=== PATIENT | female | born 1955 | race American Indian/Alaskan Native ===

== ENCOUNTER 2016-12-06 18:55 | Inpatient (IN) | payer MEDICARE, MEDICAID ==
--- NOTE | 2016-12-06 19:48 | C.PDOC ---
History Of Present Illness 61 year old female presents to the ED with c/o new onset chest pain that began yesterday and new onset lower left extremity pain with unknown date of occurrence due to poor historian. Pt reports that she cannot move right leg due to pain. Pt notes dyspnea but denies nausea, vomiting, fever, chills, diarrhea, dizziness, headache, vaginal discharge, dysuria, or any other complaints. PMHx including Hepatitis, HIV, HTN, Hyperlipidemia, DM, CVA with residual right extremity hemiplega, Arthritis, Osteoporosis and COPD Time Seen by Provider: 12/06/16 19:30 Chief Complaint (Nursing): Chest Pain History Per: Patient History/Exam Limitations: other (Limitation due to poor historian) Onset/Duration Of Symptoms: Days Current Symptoms Are (Timing): Still Present Severity: Mild Associated Symptoms: Dyspnea. denies: Nausea Past Medical History Reviewed: Historical Data, Nursing Documentation, Vital Signs Vital Signs: Last Vital Signs Temp 98.9 F 12/06/16 19:11 Pulse 72 12/06/16 20:37 Resp 20 12/06/16 20:37 BP 181/100 H 12/06/16 20:37 Pulse Ox 100 12/06/16 20:58 - Medical History PMH: Arthritis, Bronchitis, COPD, CVA (Multiple; with residual right sided weakness), Diabetes, Hepatitis (C), HIV, HTN, Hypercholesterolemia, Hyperlipidemia, Osteoporosis, Rheumatoid Arthritis, Chronic Pain Denies: Chronic Kidney Disease Surgical History: Appendectomy, Cholecystectomy - [facility] Procedures OCCUPATIONAL THERAPY (11/01/13) PHYSICAL THERAPY NEC (11/01/13) RECREATIONAL THERAPY (11/01/13) Family History: States: Unknown Family Hx - Social History Hx Tobacco Use: No Hx Alcohol Use: No Hx Substance Use: No - Immunization History Hx Tetanus Toxoid Vaccination: No Hx Influenza Vaccination: Yes Hx Pneumococcal Vaccination: No Review Of Systems Review Of Systems: ROS cannot be obtained secondary to pt's inabilty to answer questions. Constitutional: Negative for: Fever, Chills Cardiovascular: Positive for: Chest Pain Gastrointestinal: Negative for: Nausea, Vomiting, Diarrhea Genitourinary: Negative for: Dysuria, Vaginal Discharge Musculoskeletal: Positive for: Leg Pain (Right) Neurological: Negative for: Headache, Dizziness Physical Exam - Physical Exam Appears: Non-toxic, No Acute Distress Skin: Warm, Dry Head: Atraumatic, Normacephalic Eye(s): bilateral: Normal Inspection Chest: Symmetrical Cardiovascular: Rhythm Regular Respiratory: Normal Breath Sounds, No Rales, No Rhonchi, No Wheezing Gastrointestinal/Abdominal: Soft, No Tenderness, No Guarding, No Rebound Extremity: Tenderness (RLE tenderness) Neurological/Psych: Oriented x3, Normal Speech, No Normal Motor (2/5 motor strength RLE; chronic contraction RLE. Full strength LLE), Other (No focal deficit) ED Course And Treatment - Laboratory Results Result Diagrams: 12/06/16 20:01 12/06/16 20:24 ECG: Interpreted By Me, Viewed By Me (60) ECG Interpretation: Normal O2 Sat by Pulse Oximetry: 100 (Room air) Pulse Ox Interpretation: Normal Progress - Re-Evaluation Re-evaluation Note: 12/06/16 20:59 NO PRIOR CARDIAC TESTING PER OLD RECORDS.. UNABLE TO DO DVT STUDY DUE TO LACK OF AVAIL SERVICE. WILL LOVENOX POSSIBLE DVT TX D/W DR Matthew ZULETA C/F PMD WILL ADMIT PS STILL W PERSIST LEG PAIN. VS UNCHANGED - Data Reviewed Data Reviewed: Lab, Diagnostic imaging, EKG, Old records - Continuity of Care Discussed patient case with:: Patient, Family-HIPPA compliant, Covering for PMD Medical Decision Making Medical Decision Making: Plans: -CXR -Labs -Blood works -Toradol -IV Fluids -Vasotec -Morphine -EKG -Reassess and disposition Disposition Counseled Patient/Family Regarding: Studies Performed, Diagnosis - Disposition Disposition: HOSPITALIZED Disposition Time: 21:01 Condition: STABLE - POA Present On Arrival: None - Clinical Impression Clinical Impression: Chest pain, Leg pain - Scribe Statement The provider has reviewed the documentation as recorded by the Scribe Tu gant All medical record entries made by the Scribe were at my direction and personally dictated by me. I have reviewed the chart and agree that the record accurately reflects my personal performance of the history, physical exam, medical decision making, and the department course for this patient. I have also personally directed, reviewed, and agree with the discharge instructions and disposition. Decision To Admit - Pt Status Changed To: Hospital Disposition Of: Observation - . Bed Request Type: Telemetry Admitting Physician: Jessica Zuleta Patient Diagnosis: Chest pain, Leg pain
[2016-12-06] MEDS ORDERED: Enalaprilat 2.5 MG/2 ML IV ONE (19:54)
[2016-12-06 20:08] LABS: BASO # 0.1 K/uL (0.0-0.2); BASO % 0.7 % (0.0-2.0); EOS # 0.2 K/uL (0.0-0.7); EOS % 2.4 % (0.0-4.0); HEMATOCRIT 36.5 % (34.0-47.0); LYMPH # 3.9 K/uL (1.0-4.3); LYMPH % 47.4 % (20.0-40.0); MEAN CELL VOLUME 84.2 fL (81.0-99.0); MEAN CORPUSCULAR HEMOGLOBIN 28.7 pg (27.0-31.0); MEAN CORPUSCULAR HGB CONC 34.1 g/dL (33.0-37.0); MEAN PLATELET VOLUME 9.5 fL (7.2-11.7); MONO # 0.5 K/uL (0.0-0.8); MONO % 5.7 % (0.0-10.0); RED CELL DISTRIBUTION WIDTH 14.6 % (11.5-14.5); WHITE BLOOD COUNT 8.3 K/uL (4.8-10.8)
[2016-12-06 20:29] LABS: INR 1.1; PARTIAL THROMBOPLASTIN TIME 33 SECONDS (21-34)
[2016-12-06] MEDS ORDERED: Enalaprilat 2.5 MG/2 ML ONE (20:31)
[2016-12-06 20:37] LABS: CHLORIDE 98 mmol/L (98-107); POTASSIUM 3.9 mmol/L (3.6-5.2); SODIUM 139 mmol/L (132-148)
[2016-12-06 20:39] LABS: AST/SGOT 94 U/L (14-36); BILIRUBIN,TOTAL 1.7 mg/dL (0.2-1.3); CARBON DIOXIDE 27 mmol/L (22-30); GFR AFRICAN-AMERICAN > 60
[2016-12-06 20:40] LABS: ALB/GLOB RATIO 0.7 (1.0-2.1); ALKALINE PHOSPHATASE 114 U/L (38-126); ALT/SGPT 68 U/L (9-52); BLOOD UREA NITROGEN 18 mg/dL (7-17); CALCIUM 8.6 mg/dl (8.6-10.4); GLUCOSE,RANDOM 75 mg/dL (65-105); TOTAL PROTEIN 9.2 g/dL (6.3-8.3)
[2016-12-06 20:59] LABS: RBC URINE < 1 /hpf (0-3); URINE BACTERIA FEW (<OCC); URINE BILIRUBIN NEGATIVE (NEGATIVE); URINE BLOOD NEGATIVE (NEGATIVE); URINE COLOR Yellow (YELLOW); URINE GLUCOSE (UA) NORMAL (Normal); URINE KETONE NEGATIVE (NEGATIVE); URINE LEUKOCYTE ESTERASE TRACE Leu/uL (Negative); URINE PROTEIN NEGATIVE (NEGATIVE); WBC URINE 7 /hpf (0-5)
[2016-12-06] MEDS ORDERED: Enoxaparin 40 mg Syringe SC STA (21:03)
[2016-12-06] MEDS ORDERED: Morphine 4 MG/ML VIAL ONE (21:11)
[2016-12-06] MEDS ORDERED: Enoxaparin 80 mg Syringe ONE (21:11)
[2016-12-06] MEDS ORDERED: Gentamicin IV 60mg/50ml NS(PREMIX) IVPB SCH (22:00)
[2016-12-07] MEDS: Aspirin 325 mg EC Tablets PO SCH (09:29)
[2016-12-07] MEDS: Emtricitabine-Tenofovir 200 mg-300 mg Tab PO SCH (09:29)
[2016-12-07] MEDS: Pantoprazole 40 mg EC Tab PO SCH (09:29)
[2016-12-07] MEDS: ATAZANAVIR PO SCH ×2 (09:30→18:00)
[2016-12-07] MEDS ORDERED: cefTRIAXone IV 1 gm in Dextros 50 ML IVPB SCH (10:00)
[2016-12-07] MEDS ORDERED: cefTRIAXone IV 1 gm in Dextros 50 ML BAG IVPB SCH (10:00)
[2016-12-07] MEDS ORDERED: Enoxaparin 30 mg Syringe SC SCH (10:00)
[2016-12-07] MEDS ORDERED: Pneumococcal 23-Valent Vaccine IM ONE (10:00)
--- NOTE | 2016-12-07 10:37 | RAD ---
PROCEDURE: CHEST RADIOGRAPH, 1 VIEW HISTORY: chest pain COMPARISON: None available. FINDINGS: LUNGS: Clear. PLEURA: No pneumothorax or pleural fluid seen. CARDIOVASCULAR: Normal. OSSEOUS STRUCTURES: No significant abnormalities. VISUALIZED UPPER ABDOMEN: Normal. OTHER FINDINGS: None. IMPRESSION: No active disease.
[2016-12-07] MEDS: Meropenem 1 GM in Sodium Chloride 0.9% 100 ML IVPB SCH (13:30)
[2016-12-07] MEDS ORDERED: NS IVPB SCH (14:00)
[2016-12-07] MEDS ORDERED: GENTAMICIN IVPB SCH (14:00)
--- NOTE | 2016-12-07 14:11 | CP.PCM.PN ---
<EdwinNoé H - Last Filed: 12/07/16 16:19> Subjective - Date & Time of Evaluation Date of Evaluation: 12/07/16 Time of Evaluation: 09:15 - Subjective Subjective: Dr. Larose service: Patient seen and evaluated in room. History is limited due to patient's condition. She says she came here in ambulance because her chest was hurting. Objective - Vital Signs/Intake and Output Vital Signs (last 24 hours): Temp Pulse Resp BP Pulse Ox 97.4 F L 61 20 116/72 95 12/07/16 08:29 12/07/16 08:29 12/07/16 08:29 12/07/16 08:29 12/07/16 08:29 - Medications Medications: Current Medications Acyclovir (Zovirax) 400 mg PO BID [facility] Last Admin: 12/07/16 09:30 Dose: 400 mg Aspirin (Ecotrin) 325 mg PO DAILY [facility] Last Admin: 12/07/16 09:29 Dose: 325 mg Atazanavir (Reyataz) 200 mg PO BID [facility] Last Admin: 12/07/16 09:30 Dose: 200 mg Emtricitabine/Tenofovir (Truvada 200 Mg-300 Mg) 1 tab PO DAILY [facility] Last Admin: 12/07/16 09:29 Dose: 1 tab Enoxaparin Sodium (Lovenox) 40 mg SC DAILY [facility] Last Admin: 12/07/16 09:32 Dose: 40 mg Meropenem 1 gm/ Sodium (Chloride) 100 mls @ 100 mls/hr IVPB Q12H [facility] Gentamicin Sulfate 100 mg/ (Sodium Chloride) 102.5 mls @ 100 mls/hr IVPB STAT STA Stop: 12/07/16 14:23 Last Admin: 12/07/16 13:45 Dose: 100 mls/hr Gentamicin Sulfate/Sodium Chloride (Gentamicin 60mg/50ml Ns) 50 mls @ 50 mls/ hr IVPB Q8 [facility] Lisinopril (Zestril) 20 mg PO DAILY [facility] Last Admin: 12/07/16 09:29 Dose: 20 mg Pantoprazole Sodium (Protonix Ec Tab) 40 mg PO DAILY [facility] Last Admin: 12/07/16 09:29 Dose: 40 mg - Labs Labs: PT 12.7 SECONDS (9.7-12.2) H 12/06/16 20:01 INR 1.1 12/06/16 20:01 APTT 33 SECONDS (21-34) 12/06/16 20:01 - Constitutional Appears: Confused, Chronically Ill - Head Exam Head Exam: NORMOCEPHALIC - Eye Exam Eye Exam: Normal appearance - Respiratory Exam Respiratory Exam: Clear to Ausculation Bilateral. absent: Rales, Rhonchi, Wheezes - Cardiovascular Exam Cardiovascular Exam: REGULAR RHYTHM, RRR, +S1, +S2. absent: Gallop, Rubs - GI/Abdominal Exam GI & Abdominal Exam: Soft - Extremities Exam Extremities Exam: Normal Inspection. absent: Pedal Edema Assessment and Plan (1) Chest pain Assessment & Plan: Patient admitted for chest pain, cardiac enzymes have been negative, Dr. Callahan consulted for cardiology. Status: Acute (2) AIDS (acquired immune deficiency syndrome) Assessment & Plan: continue her home antiviral medication, Dr. Mondragon consulted. Status: Acute (3) Complicated UTI (urinary tract infection) Assessment & Plan: Patient has a history of reccurent UTI that were ESBL gram negative. Have consulted Dr. Mondragon and Dr. uMniz respectively. Status: Acute (4) Hepatitis C Assessment & Plan: Patient has elevated LFTs, on chart review she tested positive for Hep C about 2 years ago[address] Have consulted Dr. Cruz GI outside sales consultant. Status: Chronic (5) Right-sided muscle weakness Assessment & Plan: Residual from old CVA. physical therapy and and occupational therapy ordered. Status: Acute (6) Prophylactic measure Assessment & Plan: Protonix and Lovenox ordered for prophylaxis. Status: Acute <Jessica Larose S - Last Filed: 12/07/16 17:59> Objective - Vital Signs/Intake and Output Vital Signs (last 24 hours): Temp Pulse Resp BP Pulse Ox 97.6 F 64 20 168/91 H 97 12/07/16 16:08 12/07/16 16:08 12/07/16 16:08 12/07/16 16:08 12/07/16 16:08 - Medications Medications: Current Medications Acyclovir (Zovirax) 400 mg PO BID [facility] Last Admin: 12/07/16 09:30 Dose: 400 mg Aspirin (Ecotrin) 325 mg PO DAILY [facility] Last Admin: 12/07/16 09:29 Dose: 325 mg Atazanavir (Reyataz) 200 mg PO BID [facility] Last Admin: 12/07/16 09:30 Dose: 200 mg Emtricitabine/Tenofovir (Truvada 200 Mg-300 Mg) 1 tab PO DAILY [facility] Last Admin: 12/07/16 09:29 Dose: 1 tab Enoxaparin Sodium (Lovenox) 40 mg SC DAILY [facility] Last Admin: 12/07/16 09:32 Dose: 40 mg Meropenem 1 gm/ Sodium (Chloride) 100 mls @ 100 mls/hr IVPB Q12H [facility] Last Admin: 12/07/16 13:30 Dose: 100 mls/hr Gentamicin Sulfate/Sodium Chloride (Gentamicin 60mg/50ml Ns) 50 mls @ 50 mls/ hr IVPB Q8 [facility] Lisinopril (Zestril) 20 mg PO DAILY [facility] Last Admin: 12/07/16 09:29 Dose: 20 mg Pantoprazole Sodium (Protonix Ec Tab) 40 mg PO DAILY [facility] Last Admin: 12/07/16 09:29 Dose: 40 mg - Labs Labs: PT 12.7 SECONDS (9.7-12.2) H 12/06/16 20:01 INR 1.1 12/06/16 20:01 APTT 33 SECONDS (21-34) 12/06/16 20:01 Attending/Attestation - Attestation I have personally seen and examined this patient.: Yes I have fully participated in the care of the patient.: Yes I have reviewed all pertinent clinical information, including history, physical exam and plan: Yes Notes (Text): 12/07/16 17:59 case seen and discussed [facility] staff and resident mx as agreed
--- NOTE | 2016-12-07 17:59 | CP.PCM.HP ---
History of Present Illness - History of Present Illness History of Present Illness: 61-year-old female patient with past medical history of CVA with residual right hemiplegia, COPD bronchitis diabetes hypertension hyperlipidemia HIV hepatitis C rheumatoid arthritis osteoporosis presented to the emergency department with complaint of chest pain, mild shortness of breath, right lower limb pain. Patient is alert oriented No fever nausea vomiting diarrhea Emergency department primary blood workup done chest x-ray done Started on IV fluids and pain meds. Present on Admission - Present on Admission Any Indicators Present on Admission: No Past Patient History - Infectious Disease Hx of Infectious Diseases: None - Tetanus Immunizations Tetanus Immunization: Unknown - Past Medical History & Family History Past Medical History?: Yes - Past Social History Smoking Status: Former Smoker - CARDIAC Hx Cardiac Disorders: Yes Hx Hypercholesterolemia: Yes Hx Hypertension: Yes - PULMONARY Hx Chronic Obstructive Pulmonary Disease (COPD): Yes - NEUROLOGICAL HX Cerebrovascular Accident: Yes (right hemiparesis) - HEENT Hx HEENT Problems: No - RENAL Hx Chronic Kidney Disease: No - ENDOCRINE/METABOLIC Hx Diabetes Mellitus Type 2: Yes - HEMATOLOGICAL/ONCOLOGICAL Hx Human Immunodeficiency Virus (HIV): Yes - INTEGUMENTARY Hx Dermatological Problems: No - MUSCULOSKELETAL/RHEUMATOLOGICAL Hx Falls: Yes - GASTROINTESTINAL Hx Gastrointestinal Disorders: No - GENITOURINARY/GYNECOLOGICAL Hx Genitourinary Disorders: No - PSYCHIATRIC Hx Psychophysiologic Disorder: No Hx Substance Use: No - SURGICAL HISTORY Hx Surgeries: Yes Hx Appendectomy: Yes Hx Cholecystectomy: Yes - ANESTHESIA Hx Anesthesia: Yes Hx Anesthesia Reactions: No Hx Malignant Hyperthermia: No Meds Allergies/Adverse Reactions: Allergies Allergy/AdvReac Type Severity Reaction Status Date / Time No Known Allergies Allergy Verified 01/31/17 23:15 Results - Vital Signs Recent Vital Signs: Last Vital Signs Temp 97.6 F 12/07/16 16:08 Pulse 64 12/07/16 16:08 Resp 20 12/07/16 16:08 BP 168/91 H 12/07/16 16:08 Pulse Ox 97 12/07/16 16:08 - Labs Result Diagrams: 12/12/16 06:56 12/12/16 06:56 Labs: Laboratory Results - last 24 hr 12/07/16 12/07/16 07:09 14:26 Total Creatine Kinase 33 39 CK-MB (Mass) 0.59 0.62 Troponin I, Quant < 0.0120 < 0.0120 Assessment & Plan (1) AIDS (acquired immune deficiency syndrome) Status: Acute (2) Abdominal discomfort Status: Acute (3) Abdominal pain Status: Acute Priority: Medium (4) Abdominal pain Status: Acute (5) Abdominal pain Status: Acute (6) Abdominal pain in female Status: Acute (7) Back pain Status: Acute (8) Chest pain Status: Acute (9) Complicated UTI (urinary tract infection) Status: Acute (10) Constipation Status: Acute (11) Fever Status: Acute (12) Hypokalemia Status: Acute (13) Leg pain Status: Acute (14) Leg pain, right Status: Acute (15) Multiple drug resistant organism (MDRO) culture positive Status: Acute (16) Nausea Status: Acute (17) Prophylactic measure Status: Acute (18) Right-sided muscle weakness Status: Acute (19) UTI (urinary tract infection) Status: Acute (20) UTI (urinary tract infection) Status: Acute (21) Vomiting Status: Acute (22) Chronic pain Status: Chronic (23) HIV disease Status: Chronic (24) Hepatitis C Status: Chronic - Assessment and Plan (Free Text) Plan: Meds reviewed Continue IV fluids Pain meds Neuro consult Telemetry ID consult Cultures
--- NOTE | 2016-12-07 17:59 | CP.PCM.CON ---
History of Present Illness - History of Present Illness History of Present Illness: 61 year old female presents to the ED with c/o new onset chest pain that began yesterday and new onset lower left extremity pain with unknown date of occurrence due to poor historian. Pt reports that she cannot move right leg due to pain. s/p CVA with right hemiparesis referred for ID eval for UTI r/o sepsis Hx ESBL + in past and HIV infection PMHx including Hepatitis, HIV, HTN, Hyperlipidemia, DM, Hep C CVA with residual right extremity hemiplega, Arthritis, Osteoporosis and COPD - Medical History PMH: Arthritis, Bronchitis, COPD, CVA (Multiple; with residual right sided weakness), Diabetes, Hepatitis (C), HIV, HTN, Hypercholesterolemia, Hyperlipidemia, Osteoporosis, Rheumatoid Arthritis, Chronic Pain Denies: Chronic Kidney Disease Surgical History: Appendectomy, Cholecystectomy Review of Systems - Constitutional Constitutional: Anorexia, Lethargy, Malaise - EENT Eyes: absent: As Per HPI, Blind Spots, Blurred Vision, Change in Vision, Decreased Night Vision, Diplopia, Discharge, Dry Eye, Exophthalmos, Floaters, Irritation, Itchy Eyes, Loss of Peripheral Vision, Pain, Photophobia, Requires Corrective Lenses, Sees Flashes, Spots in Vision, Tunnel Vision, Other Visual Disturbances, Loss of Vision, Other Ears: absent: As Per HPI, Decreased Hearing, Ear Discharge, Ear Pain, Tinnitus, Abnormal Hearing, Disequilibrium, Dizziness, Other Nose/Mouth/Throat: absent: As Per HPI, Epistaxis, Nasal Congestion, Nasal Discharge, Nasal Obstruction, Nasal Trauma, Nose Pain, Post Nasal Drip, Sinus Pain, Sinus Pressure, Bleeding Gums, Change in Voice, Dental Pain, Dry Mouth, Dysphagia, Halitosis, Hoarsness, Lip Swelling, Mouth Lesions, Mouth Pain, Odynophagia, Sore Throat, Throat Swelling, Tongue Swelling, Facial Pain, Neck Pain, Neck Mass, Other - Breasts Breasts: absent: As Per HPI, Change in Shape, Mass, Pain, Nipple Discharge, Nipple Inversion, Skin Changes, Swelling, Other - Cardiovascular Cardiovascular: As Per HPI - Respiratory Respiratory: absent: As Per HPI, Cough, Dyspnea, Hemoptysis, Dyspnea on Exertion , Wheezing, Snoring, Stridor, Pain on Inspiration, Chest Congestion, Excessive Mucous Production, Change in Mucous Color, Pain with Coughing, Other - Gastrointestinal Gastrointestinal: absent: As Per HPI, Abdominal Pain, Belching, Bloating, Change in Bowel Habits, Change in Stool Character, Coffee Ground Emesis, Constipation, Cramping, Diarrhea, Dyspepsia, Dysphagia, Early Satiety, Excessive Flatus, Fecal Incontinence, Heartburn, Hematemesis, Hematochezia, Loose Stools, Melena, Nausea, Odynophagia, Temesmus, Vomiting, Other - Genitourinary Genitourinary: As Per HPI - Reproductive: Female Reproductive:Female: absent: As Per HPI, Amenorrhea, Amenorrhea/ Control, Currently Menstual, Cycle <21 Days, Cycle >35 Days, Cycle Variable, Menses 1-7 Days, Menses >/= 8 Days, Menses Variable, Cycle > 4 Weeks Between, No Menses for 6 Months, Heavy Menses, Light Menses, Normal Menses, Spotting Between Cycles , S/P Hysterectomy, Menopausal, Post Menopausal, Premenarche, Abnormal Vaginal Bleeding, Dysmenorrhea, Dyspareunia, Genital Lesions, Genital Pruritis, Pelvic Pain, Prolapse Symptoms, Sexual Dysfunction, Vaginal Discharge, Vaginal Dryness , Vaginal Odor, Vaginal Pruritis, Other - Menstruation Menstruation: absent: As Per HPI, Amenorrhea, Amenorrhea/ Control, Currently Menstual, Cycle <21 Days, Cycle >35 Days, Cycle Variable, Menses 1-7 Days, Menses >/= 8 Days, Menses Variable, Cycle > 4 Weeks Between, No Menses for 6 Months, Heavy Menses, Light Menses, Normal Menses, Spotting Between Cycles , S/P Hysterectomy, Menopausal, Post Menopausal, Premenarche, Abnormal Vaginal Bleeding, Dysmenorrhea, Other - Musculoskeletal Musculoskeletal: As Per HPI - Integumentary Integumentary: absent: As Per HPI, Acne, Alopecia, Bleeding Lesions, Change in Hair, Change in Nails, Change in Pigmentation, Changing Lesions, Dry Skin, Erythema, Furuncle, Hirsutism, Lesions, New Lesions, Non-Healing Lesions, Photosensitivity, Pruritus, Rash, Skin Pain, Skin Ulcer, Sores, Striae, Swelling , Unusual Bruising, Wounds, Jaundice, Other - Neurological Neurological: As Per HPI - Psychiatric Psychiatric: absent: As Per HPI, Abnormal Sleep Pattern, Anhedonia, Anxiety, Auditory Hallucinations, Behavioral Changes, Change in Appetite, Change in Libido, Confusion, Depression, Difficulty Concentrating, Hallucinations, Homicidal Ideation, Hopelessness, Irritability, Memory Loss, Mood Swings, Panic Attacks, Paranoia, Suicidal Ideation, Visual Hallucinations, Tactile Hallucinations, Other - Endocrine Endocrine: absent: As Per HPI, Change in Body Appearance, Change in Libido, Cold Intolorance, Deepening of Voice, Excessive Sweating, Fatigue, Flushing, Heat Intolorance, Increase in Ring/Shoe/Hat Size, Palpitations, Polydipsia, Polyphagia, Polyuria, Other - Hematologic/Lymphatic Hematologic: absent: As Per HPI, Easy Bleeding, Easy Bruising, Lymphadenopathy, Other Past Patient History - Infectious Disease Hx of Infectious Diseases: None - Tetanus Immunizations Tetanus Immunization: Unknown - Past Medical History & Family History Past Medical History?: Yes - Past Social History Smoking Status: Former Smoker - CARDIAC Hx Cardiac Disorders: Yes Hx Hypercholesterolemia: Yes Hx Hypertension: Yes - PULMONARY Hx Chronic Obstructive Pulmonary Disease (COPD): Yes - NEUROLOGICAL HX Cerebrovascular Accident: Yes (right hemiparesis) - HEENT Hx HEENT Problems: No - RENAL Hx Chronic Kidney Disease: No - ENDOCRINE/METABOLIC Hx Diabetes Mellitus Type 2: Yes - HEMATOLOGICAL/ONCOLOGICAL Hx Human Immunodeficiency Virus (HIV): Yes - INTEGUMENTARY Hx Dermatological Problems: No - MUSCULOSKELETAL/RHEUMATOLOGICAL Hx Falls: Yes - GASTROINTESTINAL Hx Gastrointestinal Disorders: No - GENITOURINARY/GYNECOLOGICAL Hx Genitourinary Disorders: No - PSYCHIATRIC Hx Psychophysiologic Disorder: No Hx Substance Use: No - SURGICAL HISTORY Hx Surgeries: Yes Hx Appendectomy: Yes Hx Cholecystectomy: Yes - ANESTHESIA Hx Anesthesia: Yes Hx Anesthesia Reactions: No Hx Malignant Hyperthermia: No Meds Allergies/Adverse Reactions: Allergies Allergy/AdvReac Type Severity Reaction Status Date / Time No Known Allergies Allergy Verified 12/06/16 19:03 - Medications Medications: Current Medications Acyclovir (Zovirax) 400 mg PO BID [facility] Last Admin: 12/07/16 09:30 Dose: 400 mg Aspirin (Ecotrin) 325 mg PO DAILY [facility] Last Admin: 12/07/16 09:29 Dose: 325 mg Atazanavir (Reyataz) 200 mg PO BID [facility] Last Admin: 12/07/16 09:30 Dose: 200 mg Emtricitabine/Tenofovir (Truvada 200 Mg-300 Mg) 1 tab PO DAILY [facility] Last Admin: 12/07/16 09:29 Dose: 1 tab Enoxaparin Sodium (Lovenox) 40 mg SC DAILY [facility] Last Admin: 12/07/16 09:32 Dose: 40 mg Meropenem 1 gm/ Sodium (Chloride) 100 mls @ 100 mls/hr IVPB Q12H [facility] Last Admin: 12/07/16 13:30 Dose: 100 mls/hr Gentamicin Sulfate/Sodium Chloride (Gentamicin 60mg/50ml Ns) 50 mls @ 50 mls/ hr IVPB Q8 [facility] Lisinopril (Zestril) 20 mg PO DAILY [facility] Last Admin: 12/07/16 09:29 Dose: 20 mg Pantoprazole Sodium (Protonix Ec Tab) 40 mg PO DAILY [facility] Last Admin: 12/07/16 09:29 Dose: 40 mg Physical Exam - Constitutional Appears: Non-toxic, Cachectic, Chronically Ill - Head Exam Head Exam: NORMAL INSPECTION, NORMOCEPHALIC - Eye Exam Eye Exam: EOMI, PERRL. absent: Scleral icterus Pupil Exam: NORMAL ACCOMODATION - ENT Exam ENT Exam: Mucous Membranes Dry, Normal External Ear Exam, Normal Oropharynx - Neck Exam Neck exam: Negative for: Lymphadenopathy, Thyromegaly - Respiratory Exam Respiratory Exam: Decreased Breath Sounds, Clear to Auscultation Bilateral - Cardiovascular Exam Cardiovascular Exam: Tachycardia, REGULAR RHYTHM, +S1, +S2 - GI/Abdominal Exam GI & Abdominal Exam: Diminished Bowel Sounds, Soft. absent: Tenderness - Rectal Exam Rectal Exam: Deferred - Exam Exam: NORMAL INSPECTION - Extremities Exam Extremities exam: Positive for: normal inspection, pedal pulses present. Negative for: calf tenderness, full ROM, joint swelling, pedal edema, tenderness Additional comments: right weakness with flexion contracture RUE - Back Exam Back exam: absent: CVA tenderness (L), CVA tenderness (R) - Neurological Exam Neurological exam: Alert, CN II-XII Intact, Motor Sensory Deficit, Oriented x3 - Psychiatric Exam Psychiatric exam: Normal Mood - Skin Skin Exam: Dry, Intact Results - Vital Signs Recent Vital Signs: Last Vital Signs Temp 97.6 F 12/07/16 16:08 Pulse 64 12/07/16 16:08 Resp 20 12/07/16 16:08 BP 168/91 H 12/07/16 16:08 Pulse Ox 97 12/07/16 16:08 - Labs Result Diagrams: 12/06/16 20:01 12/06/16 20:24 Labs: Laboratory Results - last 24 hr 12/07/16 12/07/16 07:09 14:26 Total Creatine Kinase 33 39 CK-MB (Mass) 0.59 0.62 Troponin I, Quant < 0.0120 < 0.0120 Assessment & Plan (1) AIDS (acquired immune deficiency syndrome) Status: Acute (2) Complicated UTI (urinary tract infection) Status: Acute (3) Multiple drug resistant organism (MDRO) culture positive Status: Acute (4) Right-sided muscle weakness Status: Acute (5) Hepatitis C Status: Chronic - Assessment and Plan (Free Text) Assessment: start merrem check cultures
[2016-12-07 20:14] LABS: BILIRUBIN,DIRECT 0.4 mg/dL (0.0-0.4)
[2016-12-07] MEDS: GENTAMICIN IVPB SCH (22:14)
[2016-12-07] MEDS: NS IVPB SCH (22:14)
[2016-12-08] MEDS: Meropenem 1 GM in Sodium Chloride 0.9% 100 ML IVPB SCH ×2 (01:24→13:39)
[2016-12-08] MEDS: GENTAMICIN IVPB SCH ×2 (06:16→14:38)
[2016-12-08] MEDS: NS IVPB SCH ×2 (06:16→14:38)
[2016-12-08 07:29] LABS: BASO # 0.1 K/uL (0.0-0.2); BASO % 0.7 % (0.0-2.0); EOS # 0.2 K/uL (0.0-0.7); EOS % 2.5 % (0.0-4.0); LYMPH # 2.8 K/uL (1.0-4.3); LYMPH % 39.9 % (20.0-40.0); MEAN CELL VOLUME 83.5 fL (81.0-99.0); MEAN CORPUSCULAR HEMOGLOBIN 28.6 pg (27.0-31.0); MEAN CORPUSCULAR HGB CONC 34.2 g/dL (33.0-37.0); MEAN PLATELET VOLUME 8.6 fL (7.2-11.7); MONO # 0.4 K/uL (0.0-0.8); MONO % 6.3 % (0.0-10.0); NRBC % 0.1 % (0.0-2.0); RED CELL DISTRIBUTION WIDTH 14.7 % (11.5-14.5)
[2016-12-08 07:40] LABS: CHLORIDE 97 mmol/L (98-107)
[2016-12-08 07:41] LABS: POTASSIUM 3.4 mmol/L (3.6-5.2); SODIUM 139 mmol/L (132-148)
[2016-12-08 07:43] LABS: ALB/GLOB RATIO 0.7 (1.0-2.1); ALKALINE PHOSPHATASE 106 U/L (38-126); AST/SGOT 100 U/L (14-36); BILIRUBIN,TOTAL 1.2 mg/dL (0.2-1.3); CARBON DIOXIDE 28 mmol/L (22-30); CHOLESTEROL 112 mg/dL (0-199); GFR AFRICAN-AMERICAN > 60; TOTAL PROTEIN 8.5 g/dL (6.3-8.3)
[2016-12-08 07:44] LABS: ALT/SGPT 86 U/L (9-52); BLOOD UREA NITROGEN 16 mg/dL (7-17); CALCIUM 8.8 mg/dl (8.6-10.4); GLUCOSE,RANDOM 89 mg/dL (65-105); MAGNESIUM 1.7 mg/dL (1.6-2.3); PHOSPHOROUS 3.5 mg/dL (2.5-4.5)
[2016-12-08 08:21] LABS: THYROID STIMULATING HORMONE 0.84 mIU/L (0.46-4.68)
--- NOTE | 2016-12-08 09:24 | CP.PCM.CON ---
Past Patient History - Infectious Disease Hx of Infectious Diseases: None - Tetanus Immunizations Tetanus Immunization: Unknown - Past Medical History & Family History Past Medical History?: Yes - Past Social History Smoking Status: Former Smoker - CARDIAC Hx Cardiac Disorders: Yes Hx Hypercholesterolemia: Yes Hx Hypertension: Yes - PULMONARY Hx Chronic Obstructive Pulmonary Disease (COPD): Yes - NEUROLOGICAL HX Cerebrovascular Accident: Yes (right hemiparesis) - HEENT Hx HEENT Problems: No - RENAL Hx Chronic Kidney Disease: No - ENDOCRINE/METABOLIC Hx Diabetes Mellitus Type 2: Yes - HEMATOLOGICAL/ONCOLOGICAL Hx Human Immunodeficiency Virus (HIV): Yes - INTEGUMENTARY Hx Dermatological Problems: No - MUSCULOSKELETAL/RHEUMATOLOGICAL Hx Falls: Yes - GASTROINTESTINAL Hx Gastrointestinal Disorders: No - GENITOURINARY/GYNECOLOGICAL Hx Genitourinary Disorders: No - PSYCHIATRIC Hx Psychophysiologic Disorder: No Hx Substance Use: No - SURGICAL HISTORY Hx Surgeries: Yes Hx Appendectomy: Yes Hx Cholecystectomy: Yes - ANESTHESIA Hx Anesthesia: Yes Hx Anesthesia Reactions: No Hx Malignant Hyperthermia: No Meds Allergies/Adverse Reactions: Allergies Allergy/AdvReac Type Severity Reaction Status Date / Time No Known Allergies Allergy Verified 12/06/16 19:03 - Medications Medications: Current Medications Acyclovir (Zovirax) 400 mg PO BID [facility] Last Admin: 12/07/16 18:00 Dose: 400 mg Aspirin (Ecotrin) 325 mg PO DAILY [facility] Last Admin: 12/07/16 09:29 Dose: 325 mg Atazanavir (Reyataz) 200 mg PO BID [facility] Last Admin: 12/07/16 18:00 Dose: 200 mg Emtricitabine/Tenofovir (Truvada 200 Mg-300 Mg) 1 tab PO DAILY [facility] Last Admin: 12/07/16 09:29 Dose: 1 tab Enoxaparin Sodium (Lovenox) 40 mg SC DAILY [facility] Last Admin: 12/07/16 09:32 Dose: 40 mg Meropenem 1 gm/ Sodium (Chloride) 100 mls @ 100 mls/hr IVPB Q12H [facility] Last Admin: 12/08/16 01:24 Dose: 100 mls/hr Gentamicin Sulfate/Sodium Chloride (Gentamicin 60mg/50ml Ns) 50 mls @ 50 mls/ hr IVPB Q8 [facility] Last Admin: 12/08/16 06:16 Dose: 50 mls/hr Lisinopril (Zestril) 20 mg PO DAILY [facility] Last Admin: 12/07/16 09:29 Dose: 20 mg Pantoprazole Sodium (Protonix Ec Tab) 40 mg PO DAILY [facility] Last Admin: 12/07/16 09:29 Dose: 40 mg Temazepam (Restoril) 15 mg PO HS PRN PRN Reason: Agitation Last Admin: 12/08/16 00:11 Dose: 15 mg Results - Vital Signs Recent Vital Signs: Last Vital Signs Temp 98.2 F 12/08/16 07:59 Pulse 73 12/08/16 07:59 Resp 20 12/08/16 07:59 BP 118/72 12/08/16 07:59 Pulse Ox 96 12/08/16 07:59 - Labs Result Diagrams: 12/08/16 07:21 12/08/16 07:21 Labs: Laboratory Results - last 24 hr 12/07/16 12/07/16 12/08/16 14:26 19:45 07:21 WBC 7.0 RBC 4.31 Hgb 12.3 Hct 36.0 MCV 83.5 MCH 28.6 MCHC 34.2 RDW 14.7 H Plt Count 212 MPV 8.6 Neut % (Auto) 50.6 Lymph % (Auto) 39.9 [place] % (Auto) 6.3 Eos % (Auto) 2.5 Baso % (Auto) 0.7 Neut # 3.5 Lymph # 2.8 [place] # 0.4 Eos # 0.2 Baso # 0.1 Sodium 139 Potassium 3.4 L Chloride 97 L Carbon Dioxide 28 Anion Gap 17 BUN 16 Creatinine 0.7 Est GFR ( Amer) > 60 Est GFR (Non-Af Amer) > 60 Random Glucose 89 Hemoglobin A1c 5.7 Calcium 8.8 Phosphorus 3.5 Magnesium 1.7 Total Bilirubin 1.0 1.2 Direct Bilirubin 0.4 AST 100 H ALT 86 H D Alkaline Phosphatase 106 Total Creatine Kinase 39 CK-MB (Mass) 0.62 Troponin I, Quant < 0.0120 Total Protein 8.5 H Albumin 3.6 Globulin 5.0 H Albumin/Globulin Ratio 0.7 L Triglycerides 67 Cholesterol 112 LDL Cholesterol Direct 48 HDL Cholesterol 28 L Free T4 2.06 TSH 3rd Generation 0.84
--- NOTE | 2016-12-08 09:24 | CP.PCM.CON ---
<Stacy Kimball - Last Filed: 12/08/16 09:59> History of Present Illness - History of Present Illness History of Present Illness: Cardiology Consult Note for Dr. Mistry Reason for Consult: Chest pain This is a 61Y F with PMH of HTN, HLD, DM, multiple CVAs, COPD, HIV, Hep C who was admitted for chest pain. When asked why the patient decided to come to the hospital, she said she was not sure. She denies having any pain, CP, SOB,n/v/d, numbness/tingling. She reports feeling better today. She is a poor historian. History obtained from previous records. PMH: HTN, HLD, multiple CVAs, COPD, HIV, Hep C, DM, multiple UTIs PSH: Appendectomy, Cholecystectomy, and Hysterectomy Home meds: Lisinopril, Truvada, Atazanavir, Acyclovir All: NKDA SH: Denies EtOH, drug or tobacco use (former smoker) Review of Systems - Review of Systems Review of Systems: As per HPI Past Patient History - Infectious Disease Hx of Infectious Diseases: None - Tetanus Immunizations Tetanus Immunization: Unknown - Past Medical History & Family History Past Medical History?: Yes - Past Social History Smoking Status: Former Smoker Drugs: Denies - CARDIAC Hx Cardiac Disorders: Yes Hx Hypercholesterolemia: Yes Hx Hypertension: Yes - PULMONARY Hx Chronic Obstructive Pulmonary Disease (COPD): Yes - NEUROLOGICAL HX Cerebrovascular Accident: Yes (right hemiparesis) - HEENT Hx HEENT Problems: No - RENAL Hx Chronic Kidney Disease: No - ENDOCRINE/METABOLIC Hx Diabetes Mellitus Type 2: Yes - HEMATOLOGICAL/ONCOLOGICAL Hx Human Immunodeficiency Virus (HIV): Yes - INTEGUMENTARY Hx Dermatological Problems: No - MUSCULOSKELETAL/RHEUMATOLOGICAL Hx Falls: Yes - GASTROINTESTINAL Hx Gastrointestinal Disorders: No - GENITOURINARY/GYNECOLOGICAL Hx Genitourinary Disorders: No - PSYCHIATRIC Hx Psychophysiologic Disorder: No Hx Substance Use: No - SURGICAL HISTORY Hx Surgeries: Yes Hx Appendectomy: Yes Hx Cholecystectomy: Yes - ANESTHESIA Hx Anesthesia: Yes Hx Anesthesia Reactions: No Hx Malignant Hyperthermia: No Meds Allergies/Adverse Reactions: Allergies Allergy/AdvReac Type Severity Reaction Status Date / Time No Known Allergies Allergy Verified 12/06/16 19:03 - Medications Medications: Current Medications Acyclovir (Zovirax) 400 mg PO BID [facility] Last Admin: 12/07/16 18:00 Dose: 400 mg Aspirin (Ecotrin) 325 mg PO DAILY [facility] Last Admin: 12/07/16 09:29 Dose: 325 mg Atazanavir (Reyataz) 200 mg PO BID [facility] Last Admin: 12/07/16 18:00 Dose: 200 mg Emtricitabine/Tenofovir (Truvada 200 Mg-300 Mg) 1 tab PO DAILY [facility] Last Admin: 12/07/16 09:29 Dose: 1 tab Enoxaparin Sodium (Lovenox) 40 mg SC DAILY [facility] Last Admin: 12/07/16 09:32 Dose: 40 mg Meropenem 1 gm/ Sodium (Chloride) 100 mls @ 100 mls/hr IVPB Q12H [facility] Last Admin: 12/08/16 01:24 Dose: 100 mls/hr Gentamicin Sulfate/Sodium Chloride (Gentamicin 60mg/50ml Ns) 50 mls @ 50 mls/ hr IVPB Q8 [facility] Last Admin: 12/08/16 06:16 Dose: 50 mls/hr Lisinopril (Zestril) 20 mg PO DAILY [facility] Last Admin: 12/07/16 09:29 Dose: 20 mg Pantoprazole Sodium (Protonix Ec Tab) 40 mg PO DAILY [facility] Last Admin: 12/07/16 09:29 Dose: 40 mg Temazepam (Restoril) 15 mg PO HS PRN PRN Reason: Agitation Last Admin: 12/08/16 00:11 Dose: 15 mg Physical Exam - Constitutional Appears: No Acute Distress - Head Exam Head Exam: NORMAL INSPECTION, NORMOCEPHALIC - Eye Exam Eye Exam: Normal appearance Pupil Exam: NORMAL ACCOMODATION - ENT Exam ENT Exam: Mucous Membranes Moist - Neck Exam Neck exam: Positive for: Normal Inspection - Respiratory Exam Respiratory Exam: Clear to Auscultation Bilateral, NORMAL BREATHING PATTERN. absent: Rales, Rhonchi, Wheezes - Cardiovascular Exam Cardiovascular Exam: REGULAR RHYTHM, +S1, +S2. absent: Gallop, Rubs, Systolic Murmur - GI/Abdominal Exam GI & Abdominal Exam: Normal Bowel Sounds, Soft. absent: Guarding, Rebound, Rigid, Tenderness - Extremities Exam Extremities exam: Positive for: normal inspection. Negative for: calf tenderness, pedal edema - Neurological Exam Neurological exam: Alert, CN II-XII Intact Additional comments: R sided weakness on Upper and lower extremities - Skin Skin Exam: Dry, Normal Color, Warm Results - Vital Signs Recent Vital Signs: Last Vital Signs Temp 98.2 F 12/08/16 07:59 Pulse 73 12/08/16 07:59 Resp 20 12/08/16 07:59 BP 118/72 12/08/16 07:59 Pulse Ox 96 12/08/16 07:59 - Labs Result Diagrams: 12/08/16 07:21 12/08/16 07:21 Labs: Laboratory Results - last 24 hr 12/07/16 12/07/16 12/08/16 14:26 19:45 07:21 WBC 7.0 RBC 4.31 Hgb 12.3 Hct 36.0 MCV 83.5 MCH 28.6 MCHC 34.2 RDW 14.7 H Plt Count 212 MPV 8.6 Neut % (Auto) 50.6 Lymph % (Auto) 39.9 [place] % (Auto) 6.3 Eos % (Auto) 2.5 Baso % (Auto) 0.7 Neut # 3.5 Lymph # 2.8 [place] # 0.4 Eos # 0.2 Baso # 0.1 Sodium 139 Potassium 3.4 L Chloride 97 L Carbon Dioxide 28 Anion Gap 17 BUN 16 Creatinine 0.7 Est GFR ( Amer) > 60 Est GFR (Non-Af Amer) > 60 Random Glucose 89 Hemoglobin A1c 5.7 Calcium 8.8 Phosphorus 3.5 Magnesium 1.7 Total Bilirubin 1.0 1.2 Direct Bilirubin 0.4 AST 100 H ALT 86 H D Alkaline Phosphatase 106 Total Creatine Kinase 39 CK-MB (Mass) 0.62 Troponin I, Quant < 0.0120 Total Protein 8.5 H Albumin 3.6 Globulin 5.0 H Albumin/Globulin Ratio 0.7 L Triglycerides 67 Cholesterol 112 LDL Cholesterol Direct 48 HDL Cholesterol 28 L Free T4 2.06 TSH 3rd Generation 0.84 Assessment & Plan - Assessment and Plan (Free Text) Assessment: This is a 61Y F with PMH HTN, HLD, multiple CVAs, COPD, HIV, Hep C admitted for 1) Chest pain - resolved 2) HTN 3) HLD 4) HIV 5) Hep C 6) Hx of multiple CVAs Plan: - Troponin neg x 2 - TSH and HgbA1c normal - Cholesterol panel showed low HDL - EKG showed NSR - Continue ASA and Lisinopril - Continue Home medications GI ppx: Protonix DVT ppx: Lovenox Case seen, reviewed and discussed with Dr. Fidelia Kmiball PGY1 - Date & Time Date: 12/08/16 Time: 10:09 <Malcolm Mistry - Last Filed: 01/16/17 03:48> Results - Vital Signs Recent Vital Signs: Last Vital Signs Temp 98.3 F 12/12/16 16:00 Pulse 85 12/12/16 17:30 Resp 20 12/12/16 16:00 BP 145/87 12/12/16 16:00 Pulse Ox 97 12/12/16 16:00 - Labs Result Diagrams: 12/12/16 06:56 12/12/16 06:56 Assessment & Plan (1) AIDS (acquired immune deficiency syndrome) Status: Acute (2) Chest pain Status: Acute Attending/Attestation - Attestation I have personally seen and examined this patient.: Yes I have fully participated in the care of the patient.: Yes I have reviewed all pertinent clinical information: Yes Notes (Text): 01/16/17 03:48 pt denies cp rule out with enzymes asa bp control
[2016-12-08] MEDS: Pantoprazole 40 mg EC Tab PO SCH (09:59)
[2016-12-08] MEDS: Emtricitabine-Tenofovir 200 mg-300 mg Tab PO SCH (09:59)
[2016-12-08] MEDS: Aspirin 325 mg EC Tablets PO SCH (10:00)
--- NOTE | 2016-12-08 10:04 | PCM.URO ---
Urology Progress Note - Objective Lab Results Last 24 Hours: Laboratory Results - last 24 hr 12/07/16 12/07/16 12/08/16 14:26 19:45 07:21 WBC 7.0 RBC 4.31 Hgb 12.3 Hct 36.0 MCV 83.5 MCH 28.6 MCHC 34.2 RDW 14.7 H Plt Count 212 MPV 8.6 Neut % (Auto) 50.6 Lymph % (Auto) 39.9 [place] % (Auto) 6.3 Eos % (Auto) 2.5 Baso % (Auto) 0.7 Neut # 3.5 Lymph # 2.8 [place] # 0.4 Eos # 0.2 Baso # 0.1 Sodium 139 Potassium 3.4 L Chloride 97 L Carbon Dioxide 28 Anion Gap 17 BUN 16 Creatinine 0.7 Est GFR ( Amer) > 60 Est GFR (Non-Af Amer) > 60 Random Glucose 89 Hemoglobin A1c 5.7 Calcium 8.8 Phosphorus 3.5 Magnesium 1.7 Total Bilirubin 1.0 1.2 Direct Bilirubin 0.4 AST 100 H ALT 86 H D Alkaline Phosphatase 106 Total Creatine Kinase 39 CK-MB (Mass) 0.62 Troponin I, Quant < 0.0120 Total Protein 8.5 H Albumin 3.6 Globulin 5.0 H Albumin/Globulin Ratio 0.7 L Triglycerides 67 Cholesterol 112 LDL Cholesterol Direct 48 HDL Cholesterol 28 L Free T4 2.06 TSH 3rd Generation 0.84 Vital Signs: Vital Signs - 24 hr 12/07/16 12/07/16 12/07/16 16:08 18:52 23:10 Temperature 97.6 F 97.9 F Pulse Rate 64 64 86 Respiratory 20 20 Rate Blood Pressure 168/91 H 162/93 H O2 Sat by Pulse 97 98 Oximetry 12/08/16 12/08/16 00:00 07:59 Temperature 98.2 F Pulse Rate 86 73 Respiratory 20 Rate Blood Pressure 118/72 O2 Sat by Pulse 96 Oximetry
[2016-12-08] MEDS: ATAZANAVIR PO SCH ×2 (10:08→18:12)
[2016-12-08] MEDS: Enoxaparin 40 mg Syringe SC SCH (10:08)
--- NOTE | 2016-12-08 10:11 | CP.PCM.CON ---
<Senthil Ocampo - Last Filed: 12/08/16 10:21> History of Present Illness - History of Present Illness History of Present Illness: PGY4 GI Fellow Consult Note Patient is a 61yo female with PMHx significant for CVA with right hemiplegia, HIV on HAART, HCV (Ab + in 2015), HTN, DM, COPD, OA who presented to the ED with chest and left leg pain. The patient is a very poor historian. The patient is rather tangential and cannot clearly explain what brought her to the ED. It seems she suddenly developed chest and left leg discomfort and came immediately for evaluation but on questioning she is unable to really localize her discomfort. She has right hemiplegia from a prior CVA, though the etiology of this CVA is unclear. She is on full dose ASA. Since admission she has been diagnosed with a UTI (VRE and E coli.) and has ongoing work up with cardiology, nephrology and our service. Our service has been consulted for abnormal LFTs and prior HCV antibody positivity. Reviewing her chart, her LFTs have been elevated on multiple occasions dating back to her first encounter in September 2013. Abdominal imaging has been rather unremarkable. She denies any abdominal discomfort and has never been diagnosed with liver disease previously.Currently , she does not have any nausea, vomiting, diarrhea, melena, hematochezia, dysphagia, jaundice, and admits to no weight loss, IVDU or risky sexual behavior. PMHx: See HPI PSHx: Appendectomy, Cholecystectomy, Hysterectomy FHx: Denies Social: Denies tobacco, EtOH or illicit drug use Endo: Denies any prior endoscopic evaluation Review of Systems - Constitutional Constitutional: absent: Anorexia, Chills, Fever - EENT Eyes: absent: Change in Vision Nose/Mouth/Throat: absent: Sore Throat - Cardiovascular Cardiovascular: Chest Pain, Chest Pain at Rest, Palpitations - Respiratory Respiratory: absent: Cough, Dyspnea, Change in Mucous Color - Gastrointestinal Gastrointestinal: absent: Abdominal Pain, Bloating, Constipation, Cramping, Diarrhea, Dyspepsia, Dysphagia, Heartburn, Hematochezia, Loose Stools, Melena, Nausea, Vomiting - Genitourinary Genitourinary: absent: Dysuria, Urinary Frequency, Urinary Urgency - Musculoskeletal Musculoskeletal: absent: Back Pain, Neck Pain - Integumentary Integumentary: absent: New Lesions, Rash - Neurological Neurological: Focal Weakness (right hemiplegia). absent: Dizziness, Numbness - Psychiatric Psychiatric: absent: Anxiety, Depression - Endocrine Endocrine: absent: Polydipsia, Polyphagia, Polyuria - Hematologic/Lymphatic Hematologic: absent: Easy Bleeding, Easy Bruising, Lymphadenopathy Past Patient History - Infectious Disease Hx of Infectious Diseases: None - Tetanus Immunizations Tetanus Immunization: Unknown - Past Medical History & Family History Past Medical History?: Yes - Past Social History Smoking Status: Former Smoker Drugs: Denies - CARDIAC Hx Cardiac Disorders: Yes Hx Hypercholesterolemia: Yes Hx Hypertension: Yes - PULMONARY Hx Chronic Obstructive Pulmonary Disease (COPD): Yes - NEUROLOGICAL HX Cerebrovascular Accident: Yes (right hemiparesis) - HEENT Hx HEENT Problems: No - RENAL Hx Chronic Kidney Disease: No - ENDOCRINE/METABOLIC Hx Diabetes Mellitus Type 2: Yes - HEMATOLOGICAL/ONCOLOGICAL Hx Human Immunodeficiency Virus (HIV): Yes - INTEGUMENTARY Hx Dermatological Problems: No - MUSCULOSKELETAL/RHEUMATOLOGICAL Hx Falls: Yes - GASTROINTESTINAL Hx Gastrointestinal Disorders: No - GENITOURINARY/GYNECOLOGICAL Hx Genitourinary Disorders: No - PSYCHIATRIC Hx Psychophysiologic Disorder: No Hx Substance Use: No - SURGICAL HISTORY Hx Surgeries: Yes Hx Appendectomy: Yes Hx Cholecystectomy: Yes - ANESTHESIA Hx Anesthesia: Yes Hx Anesthesia Reactions: No Hx Malignant Hyperthermia: No Meds Allergies/Adverse Reactions: Allergies Allergy/AdvReac Type Severity Reaction Status Date / Time No Known Allergies Allergy Verified 12/06/16 19:03 - Medications Medications: Current Medications Acyclovir (Zovirax) 400 mg PO BID [facility] Last Admin: 12/07/16 18:00 Dose: 400 mg Aspirin (Ecotrin) 325 mg PO DAILY [facility] Last Admin: 12/08/16 10:00 Dose: 325 mg Atazanavir (Reyataz) 200 mg PO BID [facility] Last Admin: 12/07/16 18:00 Dose: 200 mg Emtricitabine/Tenofovir (Truvada 200 Mg-300 Mg) 1 tab PO DAILY [facility] Last Admin: 12/08/16 09:59 Dose: 1 tab Enoxaparin Sodium (Lovenox) 40 mg SC DAILY [facility] Meropenem 1 gm/ Sodium (Chloride) 100 mls @ 100 mls/hr IVPB Q12H [facility] Last Admin: 12/08/16 01:24 Dose: 100 mls/hr Gentamicin Sulfate/Sodium Chloride (Gentamicin 60mg/50ml Ns) 50 mls @ 50 mls/ hr IVPB Q8 [facility] Last Admin: 12/08/16 06:16 Dose: 50 mls/hr Lisinopril (Zestril) 20 mg PO DAILY [facility] Last Admin: 12/08/16 10:00 Dose: 20 mg Pantoprazole Sodium (Protonix Ec Tab) 40 mg PO DAILY [facility] Last Admin: 12/08/16 09:59 Dose: 40 mg Temazepam (Restoril) 15 mg PO HS PRN PRN Reason: Agitation Last Admin: 12/08/16 00:11 Dose: 15 mg Physical Exam - Constitutional Appears: Non-toxic, No Acute Distress - Head Exam Additional comments: right facial droop, chronic from prior CVA - Eye Exam Eye Exam: EOMI, PERRL - ENT Exam ENT Exam: Mucous Membranes Moist - Respiratory Exam Respiratory Exam: Clear to Auscultation Bilateral. absent: Rales, Rhonchi, Wheezes - Cardiovascular Exam Cardiovascular Exam: RRR, +S1, +S2 - GI/Abdominal Exam GI & Abdominal Exam: Normal Bowel Sounds, Soft. absent: Distended, Firm, Guarding, Rigid, Tenderness - Extremities Exam Extremities exam: Positive for: normal inspection. Negative for: pedal edema - Neurological Exam Neurological exam: Alert, Oriented x3 Additional comments: right hemiplegia, right facial droop - Psychiatric Exam Psychiatric exam: Normal Affect, Normal Mood - Skin Skin Exam: Dry, Warm Results - Vital Signs Recent Vital Signs: Last Vital Signs Temp 98.2 F 12/08/16 07:59 Pulse 73 12/08/16 07:59 Resp 20 12/08/16 07:59 BP 118/72 12/08/16 07:59 Pulse Ox 96 12/08/16 07:59 - Labs Result Diagrams: 12/08/16 07:21 12/08/16 07:21 Labs: Laboratory Results - last 24 hr 12/07/16 12/07/16 12/08/16 14:26 19:45 07:21 WBC 7.0 RBC 4.31 Hgb 12.3 Hct 36.0 MCV 83.5 MCH 28.6 MCHC 34.2 RDW 14.7 H Plt Count 212 MPV 8.6 Neut % (Auto) 50.6 Lymph % (Auto) 39.9 [place] % (Auto) 6.3 Eos % (Auto) 2.5 Baso % (Auto) 0.7 Neut # 3.5 Lymph # 2.8 [place] # 0.4 Eos # 0.2 Baso # 0.1 Sodium 139 Potassium 3.4 L Chloride 97 L Carbon Dioxide 28 Anion Gap 17 BUN 16 Creatinine 0.7 Est GFR ( Amer) > 60 Est GFR (Non-Af Amer) > 60 Random Glucose 89 Hemoglobin A1c 5.7 Calcium 8.8 Phosphorus 3.5 Magnesium 1.7 Total Bilirubin 1.0 1.2 Direct Bilirubin 0.4 AST 100 H ALT 86 H D Alkaline Phosphatase 106 Total Creatine Kinase 39 CK-MB (Mass) 0.62 Troponin I, Quant < 0.0120 Total Protein 8.5 H Albumin 3.6 Globulin 5.0 H Albumin/Globulin Ratio 0.7 L Triglycerides 67 Cholesterol 112 LDL Cholesterol Direct 48 HDL Cholesterol 28 L Free T4 2.06 TSH 3rd Generation 0.84 Assessment & Plan - Assessment and Plan (Free Text) Assessment: Patient is a 61yo female with PMHx significant for CVA with right hemiplegia, HIV on HAART, HCV (Ab + in 2014), HTN, DM, COPD, OA who presented to the ED with chest and left leg pain. Our service was consulted for abnormal LFTs and HCV Ab positivity. -Abnormal LFTs -HCV Ab + -HIV on HAART Plan: -Check abdominal U/S -Indirect bilirubinemia noted; possibly a result of patient's medications, no obvious ongoing hemolytic process - would suspect more direct picture with HCV; will check a reticulocyte count -Check Hepatitis C viral load (quantitative) and reflex genotype -CD4 count 770 in 10/2015, awaiting current CD4 -Autoimmune w/u ordered: JONA, AMA, SMA -Patient would benefit from EGD/Colonoscopy which can be performed as an outpatient -ID on consultation - Date & Time Date: 12/08/16 Time: 06:30 <London Richardson - Last Filed: 12/08/16 17:07> Meds - Medications Medications: Current Medications Acyclovir (Zovirax) 400 mg PO BID [facility] Last Admin: 12/08/16 10:09 Dose: 400 mg Aspirin (Ecotrin) 325 mg PO DAILY [facility] Last Admin: 12/08/16 10:00 Dose: 325 mg Atazanavir (Reyataz) 200 mg PO BID [facility] Last Admin: 12/08/16 10:08 Dose: 200 mg Emtricitabine/Tenofovir (Truvada 200 Mg-300 Mg) 1 tab PO DAILY [facility] Last Admin: 12/08/16 09:59 Dose: 1 tab Enoxaparin Sodium (Lovenox) 40 mg SC DAILY [facility] Last Admin: 12/08/16 10:08 Dose: 40 mg Meropenem 1 gm/ Sodium (Chloride) 100 mls @ 100 mls/hr IVPB Q12H [facility] Last Admin: 12/08/16 13:39 Dose: 100 mls/hr Gentamicin Sulfate/Sodium Chloride (Gentamicin 60mg/50ml Ns) 50 mls @ 50 mls/ hr IVPB Q8 [facility] Last Admin: 12/08/16 14:38 Dose: 50 mls/hr Ampicillin 2 gm/ Sodium (Chloride) 100 mls @ 50 mls/hr IVPB Q6H [facility] Last Admin: 12/08/16 11:51 Dose: 50 mls/hr Lisinopril (Zestril) 20 mg PO DAILY [facility] Last Admin: 12/08/16 10:00 Dose: 20 mg Pantoprazole Sodium (Protonix Ec Tab) 40 mg PO DAILY [facility] Last Admin: 12/08/16 09:59 Dose: 40 mg Temazepam (Restoril) 15 mg PO HS PRN PRN Reason: Agitation Last Admin: 12/08/16 00:11 Dose: 15 mg Results - Vital Signs Recent Vital Signs: Last Vital Signs Temp 97.6 F 12/08/16 15:44 Pulse 75 12/08/16 15:44 Resp 18 12/08/16 15:44 BP 111/75 12/08/16 15:44 Pulse Ox 95 12/08/16 15:44 - Labs Result Diagrams: 12/08/16 07:21 12/08/16 07:21 Attending/Attestation - Attestation I have personally seen and examined this patient.: Yes I have fully participated in the care of the patient.: Yes I have reviewed all pertinent clinical information: Yes Notes (Text): Patient seen and examined with GI fellow. Agree with his note as documented above with the following additions/exceptions. This is a 61yo female with h/o CVA with right hemiplegia, HIV on HAART, HCV (Ab + in 2015), HTN, DM, COPD, OA who is admitted with chest pain. She is found to have abnormal LFTs with known HCV antibody positivity in the past. She is a vague historian. She has never been treated for HCV previously. She had indirect hyperbilirubinemia on admission with AST/ALT elevation. Would obtain hemolysis labs. Check abdominal sonogram. Avoid hepatotoxic medications. Obtain HCV VL/genotype. She would benefit from index screening colonoscopy as an outpatient. 12/08/16 17:05
--- NOTE | 2016-12-08 10:38 | CP.PCM.PN ---
Subjective - Date & Time of Evaluation Date of Evaluation: 12/08/16 Time of Evaluation: 12:00 - Subjective Subjective: clinically same consultants following iv rx in progress Objective - Vital Signs/Intake and Output Vital Signs (last 24 hours): Temp Pulse Resp BP Pulse Ox 98.2 F 73 20 118/72 96 12/08/16 07:59 12/08/16 07:59 12/08/16 07:59 12/08/16 07:59 12/08/16 07:59 - Medications Medications: Current Medications Acyclovir (Zovirax) 400 mg PO BID [facility] Last Admin: 12/08/16 10:09 Dose: 400 mg Aspirin (Ecotrin) 325 mg PO DAILY [facility] Last Admin: 12/08/16 10:00 Dose: 325 mg Atazanavir (Reyataz) 200 mg PO BID [facility] Last Admin: 12/08/16 10:08 Dose: 200 mg Emtricitabine/Tenofovir (Truvada 200 Mg-300 Mg) 1 tab PO DAILY [facility] Last Admin: 12/08/16 09:59 Dose: 1 tab Enoxaparin Sodium (Lovenox) 40 mg SC DAILY [facility] Last Admin: 12/08/16 10:08 Dose: 40 mg Meropenem 1 gm/ Sodium (Chloride) 100 mls @ 100 mls/hr IVPB Q12H [facility] Last Admin: 12/08/16 01:24 Dose: 100 mls/hr Gentamicin Sulfate/Sodium Chloride (Gentamicin 60mg/50ml Ns) 50 mls @ 50 mls/ hr IVPB Q8 [facility] Last Admin: 12/08/16 06:16 Dose: 50 mls/hr Ampicillin 2 gm/ Sodium (Chloride) 100 mls @ 50 mls/hr IVPB Q6H [facility] Lisinopril (Zestril) 20 mg PO DAILY [facility] Last Admin: 12/08/16 10:00 Dose: 20 mg Pantoprazole Sodium (Protonix Ec Tab) 40 mg PO DAILY [facility] Last Admin: 12/08/16 09:59 Dose: 40 mg Temazepam (Restoril) 15 mg PO HS PRN PRN Reason: Agitation Last Admin: 12/08/16 00:11 Dose: 15 mg - Labs Labs: 12/08/16 07:21 12/08/16 07:21 PT 12.7 SECONDS (9.7-12.2) H 12/06/16 20:01 INR 1.1 12/06/16 20:01 APTT 33 SECONDS (21-34) 12/06/16 20:01 - Constitutional Appears: Well - Head Exam Head Exam: ATRAUMATIC, NORMAL INSPECTION, NORMOCEPHALIC - Eye Exam Eye Exam: EOMI, Normal appearance, PERRL Pupil Exam: NORMAL ACCOMODATION, PERRL - ENT Exam ENT Exam: Mucous Membranes Moist, Normal Exam - Neck Exam Neck Exam: Full ROM, Normal Inspection. absent: Lymphadenopathy - Respiratory Exam Respiratory Exam: Decreased Breath Sounds - Cardiovascular Exam Cardiovascular Exam: REGULAR RHYTHM, +S1, +S2 - GI/Abdominal Exam GI & Abdominal Exam: Soft, Diminished Bowel Sounds - Rectal Exam Rectal Exam: Deferred - Neurological Exam Neurological Exam: Alert, Awake Assessment and Plan (1) AIDS (acquired immune deficiency syndrome) Status: Acute (2) Abdominal discomfort Status: Acute (3) Abdominal pain Status: Acute (4) Abdominal pain Status: Acute (5) Abdominal pain in female Status: Acute (6) Back pain Status: Acute (7) Chest pain Status: Acute (8) Complicated UTI (urinary tract infection) Status: Acute (9) Constipation Status: Acute (10) Fever Status: Acute (11) Hypokalemia Status: Acute (12) Leg pain Status: Acute (13) Leg pain, right Status: Acute (14) Multiple drug resistant organism (MDRO) culture positive Status: Acute (15) Nausea Status: Acute (16) Prophylactic measure Status: Acute (17) Right-sided muscle weakness Status: Acute (18) UTI (urinary tract infection) Status: Acute (19) Vomiting Status: Acute (20) Chronic pain Status: Chronic (21) HIV disease Status: Chronic (22) Hepatitis C Status: Chronic - Assessment and Plan (Free Text) Plan: simin iv abx dr franklin on board dr wilmer meeks uro gi simin mx as ordered f/u labs f/u cultures monitor for fever
--- NOTE | 2016-12-08 11:20 | US ---
HISTORY: elevated LFTs COMPARISON: None. TECHNIQUE: Sonographic evaluation of the abdomen. FINDINGS: LIVER: Measures 13.4 cm. Hepatopedal blood flow. Fatty infiltration manifest ultrasonographically as increased echogenicity of the liver parenchyma. No mass. No intrahepatic bile duct dilatation. GALLBLADDER: Status post cholecystectomy. No abnormality is seen in the gallbladder fossa. COMMON BILE DUCT: Measures 4.1 mm. No stones. No dilatation. PANCREAS: Unremarkable as visualized. No mass. No ductal dilatation. RIGHT KIDNEY: Measures 3.9 x 9.2cm. Normal echogenicity. No calculus, mass, or hydronephrosis. LEFT KIDNEY: Measures 5.5 x 9.4cm. Normal echogenicity. No calculus, mass, or hydronephrosis. SPLEEN: Normal in size and contour. No mass. AORTA: No aneurysmal dilatation. IVC: Unremarkable. OTHER FINDINGS: None. IMPRESSION: Hepatic steatosis without focal abnormality. Otherwise unremarkable study.
[2016-12-08 12:58] LABS: RETIC% 0.8 % (0.5-1.5)
--- NOTE | 2016-12-08 14:05 | CP.PCM.PN ---
<Noé Pineda H - Last Filed: 12/08/16 17:36> Subjective - Date & Time of Evaluation Date of Evaluation: 12/08/16 Time of Evaluation: 09:15 - Subjective Subjective: Dr. Larose service: Patient seen and examined in room. She seems very uncomfortable. I am unable to obtain a ROS or history from patient due to her condition. Objective - Vital Signs/Intake and Output Vital Signs (last 24 hours): Temp Pulse Resp BP Pulse Ox 98.2 F 73 20 118/72 96 12/08/16 07:59 12/08/16 07:59 12/08/16 07:59 12/08/16 07:59 12/08/16 07:59 - Medications Medications: Current Medications Acyclovir (Zovirax) 400 mg PO BID [facility] Last Admin: 12/08/16 10:09 Dose: 400 mg Aspirin (Ecotrin) 325 mg PO DAILY [facility] Last Admin: 12/08/16 10:00 Dose: 325 mg Atazanavir (Reyataz) 200 mg PO BID [facility] Last Admin: 12/08/16 10:08 Dose: 200 mg Emtricitabine/Tenofovir (Truvada 200 Mg-300 Mg) 1 tab PO DAILY [facility] Last Admin: 12/08/16 09:59 Dose: 1 tab Enoxaparin Sodium (Lovenox) 40 mg SC DAILY [facility] Last Admin: 12/08/16 10:08 Dose: 40 mg Meropenem 1 gm/ Sodium (Chloride) 100 mls @ 100 mls/hr IVPB Q12H [facility] Last Admin: 12/08/16 01:24 Dose: 100 mls/hr Gentamicin Sulfate/Sodium Chloride (Gentamicin 60mg/50ml Ns) 50 mls @ 50 mls/ hr IVPB Q8 [facility] Last Admin: 12/08/16 06:16 Dose: 50 mls/hr Ampicillin 2 gm/ Sodium (Chloride) 100 mls @ 50 mls/hr IVPB Q6H [facility] Last Admin: 12/08/16 11:51 Dose: 50 mls/hr Lisinopril (Zestril) 20 mg PO DAILY [facility] Last Admin: 12/08/16 10:00 Dose: 20 mg Pantoprazole Sodium (Protonix Ec Tab) 40 mg PO DAILY [facility] Last Admin: 12/08/16 09:59 Dose: 40 mg Temazepam (Restoril) 15 mg PO HS PRN PRN Reason: Agitation Last Admin: 12/08/16 00:11 Dose: 15 mg - Labs Labs: 12/08/16 07:21 12/08/16 07:21 PT 12.7 SECONDS (9.7-12.2) H 12/06/16 20:01 INR 1.1 12/06/16 20:01 APTT 33 SECONDS (21-34) 12/06/16 20:01 - Constitutional Appears: Non-toxic, No Acute Distress - Head Exam Head Exam: NORMAL INSPECTION - Eye Exam Eye Exam: Normal appearance - Respiratory Exam Respiratory Exam: Clear to Ausculation Bilateral. absent: Rhonchi, Wheezes - Cardiovascular Exam Cardiovascular Exam: REGULAR RHYTHM, RRR, +S1, +S2. absent: Gallop, Rubs - GI/Abdominal Exam GI & Abdominal Exam: Guarding, Soft, Tenderness Assessment and Plan - Assessment and Plan (Free Text) Assessment: Assessment and Plan (1) Chest pain Assessment & Plan: 12/08: D/C tele, see consult note for Dr. Callahan Patient admitted for chest pain, cardiac enzymes have been negative, Dr. Callahan consulted for cardiology. Status: Acute (2) AIDS (acquired immune deficiency syndrome) Assessment & Plan: 12/08: Alanna consulted, follow viral load and cd 4 count continue her home antiviral medication, Dr. Mondragon consulted. Status: Acute (3) Complicated UTI (urinary tract infection) Assessment & Plan: 12/08: culture is ESBL, patient on 2gram of Ampicillian per Alanna. Follow up recs by Dr. Márquez Urology consult, help appreciated. Patient has a history of reccurent UTI that were ESBL gram negative. Have consulted Dr. Mondragon and Dr. Muniz respectively. Status: Acute (4) Hepatitis C Assessment & Plan: 12/08: US shows hepatic steatosis, follow up Hep C viral count and genotype. Follow up GI consult. Patient has elevated LFTs, on chart review she tested positive for Hep C about 2 years ago[address] Have consulted Dr. Cruz GI international travel consultant. 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 physical therapy and and occupational therapy ordered. Status: Acute (6) Prophylactic measure Assessment & Plan: Protonix and Lovenox ordered for prophylaxis. Status: Acute <Jessica Larose S - Last Filed: 12/08/16 19:19> Objective - Vital Signs/Intake and Output Vital Signs (last 24 hours): Temp Pulse Resp BP Pulse Ox 97.6 F 75 18 111/75 95 12/08/16 15:44 12/08/16 16:00 12/08/16 15:44 12/08/16 15:44 12/08/16 15:44 - Medications Medications: Current Medications Acyclovir (Zovirax) 400 mg PO BID [facility] Last Admin: 12/08/16 18:12 Dose: 400 mg Aspirin (Ecotrin) 325 mg PO DAILY [facility] Last Admin: 12/08/16 10:00 Dose: 325 mg Atazanavir (Reyataz) 200 mg PO BID [facility] Last Admin: 12/08/16 18:12 Dose: 200 mg Emtricitabine/Tenofovir (Truvada 200 Mg-300 Mg) 1 tab PO DAILY [facility] Last Admin: 12/08/16 09:59 Dose: 1 tab Enoxaparin Sodium (Lovenox) 40 mg SC DAILY [facility] Last Admin: 12/08/16 10:08 Dose: 40 mg Meropenem 1 gm/ Sodium (Chloride) 100 mls @ 100 mls/hr IVPB Q12H [facility] Last Admin: 12/08/16 13:39 Dose: 100 mls/hr Gentamicin Sulfate/Sodium Chloride (Gentamicin 60mg/50ml Ns) 50 mls @ 50 mls/ hr IVPB Q8 [facility] Last Admin: 12/08/16 14:38 Dose: 50 mls/hr Ampicillin 2 gm/ Sodium (Chloride) 100 mls @ 50 mls/hr IVPB Q6H [facility] Last Admin: 12/08/16 18:15 Dose: 50 mls/hr Lisinopril (Zestril) 20 mg PO DAILY [facility] Last Admin: 12/08/16 10:00 Dose: 20 mg Pantoprazole Sodium (Protonix Ec Tab) 40 mg PO DAILY [facility] Last Admin: 12/08/16 09:59 Dose: 40 mg Temazepam (Restoril) 15 mg PO HS PRN PRN Reason: Agitation Last Admin: 12/08/16 00:11 Dose: 15 mg - Labs Labs: PT 12.7 SECONDS (9.7-12.2) H 12/06/16 20:01 INR 1.1 12/06/16 20:01 APTT 33 SECONDS (21-34) 12/06/16 20:01 Attending/Attestation - Attestation I have personally seen and examined this patient.: Yes I have fully participated in the care of the patient.: Yes I have reviewed all pertinent clinical information, including history, physical exam and plan: Yes Notes (Text): 12/08/16 19:19 case seen and discussed with resident and staff mx as ordered
--- NOTE | 2016-12-08 18:02 | CP.PCM.PN ---
Subjective - Date & Time of Evaluation Date of Evaluation: 12/08/16 Time of Evaluation: 10:00 - Subjective Subjective: afeb grew enterococcus and esbl in urine may need gu eval- neurogenic bladder ? await t cell subsets Objective - Vital Signs/Intake and Output Vital Signs (last 24 hours): Temp Pulse Resp BP Pulse Ox 97.6 F 75 18 111/75 95 12/08/16 15:44 12/08/16 15:44 12/08/16 15:44 12/08/16 15:44 12/08/16 15:44 - Medications Medications: Current Medications Acyclovir (Zovirax) 400 mg PO BID [facility] Last Admin: 12/08/16 10:09 Dose: 400 mg Aspirin (Ecotrin) 325 mg PO DAILY [facility] Last Admin: 12/08/16 10:00 Dose: 325 mg Atazanavir (Reyataz) 200 mg PO BID [facility] Last Admin: 12/08/16 10:08 Dose: 200 mg Emtricitabine/Tenofovir (Truvada 200 Mg-300 Mg) 1 tab PO DAILY [facility] Last Admin: 12/08/16 09:59 Dose: 1 tab Enoxaparin Sodium (Lovenox) 40 mg SC DAILY [facility] Last Admin: 12/08/16 10:08 Dose: 40 mg Meropenem 1 gm/ Sodium (Chloride) 100 mls @ 100 mls/hr IVPB Q12H [facility] Last Admin: 12/08/16 13:39 Dose: 100 mls/hr Gentamicin Sulfate/Sodium Chloride (Gentamicin 60mg/50ml Ns) 50 mls @ 50 mls/ hr IVPB Q8 [facility] Last Admin: 12/08/16 14:38 Dose: 50 mls/hr Ampicillin 2 gm/ Sodium (Chloride) 100 mls @ 50 mls/hr IVPB Q6H [facility] Last Admin: 12/08/16 11:51 Dose: 50 mls/hr Lisinopril (Zestril) 20 mg PO DAILY [facility] Last Admin: 12/08/16 10:00 Dose: 20 mg Pantoprazole Sodium (Protonix Ec Tab) 40 mg PO DAILY [facility] Last Admin: 12/08/16 09:59 Dose: 40 mg Temazepam (Restoril) 15 mg PO HS PRN PRN Reason: Agitation Last Admin: 12/08/16 00:11 Dose: 15 mg - Labs Labs: PT 12.7 SECONDS (9.7-12.2) H 12/06/16 20:01 INR 1.1 12/06/16 20:01 APTT 33 SECONDS (21-34) 12/06/16 20:01 - Constitutional Appears: Non-toxic, Cachectic, Chronically Ill - Head Exam Head Exam: NORMOCEPHALIC - Eye Exam Eye Exam: absent: Scleral icterus - ENT Exam ENT Exam: Mucous Membranes Dry - Neck Exam Neck Exam: absent: Lymphadenopathy - Respiratory Exam Respiratory Exam: Decreased Breath Sounds, Rhonchi - Cardiovascular Exam Cardiovascular Exam: REGULAR RHYTHM, +S1, +S2 - GI/Abdominal Exam GI & Abdominal Exam: Distended, Soft. absent: Tenderness - Rectal Exam Rectal Exam: Deferred - Exam Exam: NORMAL INSPECTION - Extremities Exam Extremities Exam: absent: Calf Tenderness, Pedal Edema - Back Exam Back Exam: absent: CVA tenderness (L), CVA tenderness (R) - Neurological Exam Neuro motor strength exam: Left Upper Extremity: 4, Right Upper Extremity: 2/1, Left Lower Extremity: 4, Right Lower Extremity: 2/1 - Psychiatric Exam Psychiatric exam: Depressed - Skin Skin Exam: Dry Assessment and Plan (1) AIDS (acquired immune deficiency syndrome) Status: Acute (2) Complicated UTI (urinary tract infection) Status: Acute (3) Multiple drug resistant organism (MDRO) culture positive Status: Acute (4) Right-sided muscle weakness Status: Acute (5) Hepatitis C Status: Chronic
[2016-12-08] MEDS ORDERED: Potassium Chloride 10 mEq ER Tab PO STA (19:39)
[2016-12-09] MEDS: Meropenem 1 GM in Sodium Chloride 0.9% 100 ML IVPB SCH ×2 (01:09→13:00)
[2016-12-09] MEDS: GENTAMICIN IVPB SCH ×3 (05:09→22:05)
[2016-12-09] MEDS: NS IVPB SCH ×3 (05:09→22:05)
--- NOTE | 2016-12-09 08:26 | CP.PCM.PN ---
Subjective - Date & Time of Evaluation Date of Evaluation: 12/09/16 Time of Evaluation: 08:00 - Subjective Subjective: no cp stable Objective - Vital Signs/Intake and Output Vital Signs (last 24 hours): Temp Pulse Resp BP Pulse Ox 98 F 69 20 142/86 98 12/09/16 00:00 12/09/16 07:35 12/09/16 00:00 12/09/16 00:00 12/09/16 00:00 Intake and Output: 12/09/16 12/09/16 06:59 18:59 Intake Total 400 Balance 400 - Medications Medications: Current Medications Acyclovir (Zovirax) 400 mg PO BID [facility] Last Admin: 12/08/16 18:12 Dose: 400 mg Aspirin (Ecotrin) 325 mg PO DAILY [facility] Last Admin: 12/08/16 10:00 Dose: 325 mg Atazanavir (Reyataz) 200 mg PO BID [facility] Last Admin: 12/08/16 18:12 Dose: 200 mg Emtricitabine/Tenofovir (Truvada 200 Mg-300 Mg) 1 tab PO DAILY [facility] Last Admin: 12/08/16 09:59 Dose: 1 tab Enoxaparin Sodium (Lovenox) 40 mg SC DAILY [facility] Last Admin: 12/08/16 10:08 Dose: 40 mg Meropenem 1 gm/ Sodium (Chloride) 100 mls @ 100 mls/hr IVPB Q12H [facility] Last Admin: 12/09/16 01:09 Dose: 100 mls/hr Gentamicin Sulfate/Sodium Chloride (Gentamicin 60mg/50ml Ns) 50 mls @ 50 mls/ hr IVPB Q8 [facility] Last Admin: 12/09/16 05:09 Dose: 50 mls/hr Ampicillin 2 gm/ Sodium (Chloride) 100 mls @ 50 mls/hr IVPB Q6H [facility] Last Admin: 12/09/16 05:42 Dose: 50 mls/hr Lisinopril (Zestril) 20 mg PO DAILY [facility] Last Admin: 12/08/16 10:00 Dose: 20 mg Pantoprazole Sodium (Protonix Ec Tab) 40 mg PO DAILY [facility] Last Admin: 12/08/16 09:59 Dose: 40 mg Temazepam (Restoril) 15 mg PO HS PRN PRN Reason: Agitation Last Admin: 12/09/16 02:55 Dose: 15 mg - Labs Labs: PT 12.7 SECONDS (9.7-12.2) H 12/06/16 20:01 INR 1.1 12/06/16 20:01 APTT 33 SECONDS (21-34) 12/06/16 20:01 - Constitutional Appears: Well - Head Exam Head Exam: ATRAUMATIC - Eye Exam Eye Exam: Normal appearance - ENT Exam ENT Exam: Mucous Membranes Moist - Respiratory Exam Respiratory Exam: Clear to Ausculation Bilateral. absent: Rales - Cardiovascular Exam Cardiovascular Exam: REGULAR RHYTHM - GI/Abdominal Exam GI & Abdominal Exam: Soft - Exam External exam: NORMAL EXTERNAL EXAM - Extremities Exam Extremities Exam: Normal Inspection - Neurological Exam Neurological Exam: Alert, Awake - Psychiatric Exam Psychiatric exam: Normal Mood - Skin Skin Exam: Dry, Intact Assessment and Plan (1) AIDS (acquired immune deficiency syndrome) Assessment & Plan: called for cp pt denies rule out with troponins asa and bp continue Status: Acute
[2016-12-09] MEDS: Aspirin 325 mg EC Tablets PO SCH (10:31)
[2016-12-09] MEDS: Pantoprazole 40 mg EC Tab PO SCH (10:31)
[2016-12-09] MEDS: Enoxaparin 40 mg Syringe SC SCH (10:31)
[2016-12-09] MEDS: Emtricitabine-Tenofovir 200 mg-300 mg Tab PO SCH (10:33)
[2016-12-09] MEDS: ATAZANAVIR PO SCH ×2 (10:34→17:25)
[2016-12-09] MEDS ORDERED: Pneumococcal 23-Valent Vaccine IM ONE (11:30)
--- NOTE | 2016-12-09 13:13 | CP.PCM.PN ---
<Senthil Ocampo - Last Filed: 12/09/16 13:09> Subjective - Date & Time of Evaluation Date of Evaluation: 12/09/16 Time of Evaluation: 11:45 - Subjective Subjective: PGY4 GI Fellow Progress Note Patient seen and examined bedside this morning. The patient states she is more tired today and keeps getting awoken. She denies any new issues. 12 system ROS performed and negative except where stated. Objective - Vital Signs/Intake and Output Vital Signs (last 24 hours): Temp Pulse Resp BP Pulse Ox 97.6 F 69 17 112/71 99 12/09/16 07:30 12/09/16 07:35 12/09/16 07:30 12/09/16 07:30 12/09/16 07:30 Intake and Output: 12/09/16 12/09/16 06:59 18:59 Intake Total 400 Balance 400 - Medications Medications: Current Medications Acyclovir (Zovirax) 400 mg PO BID [facility] Last Admin: 12/09/16 10:34 Dose: 400 mg Aspirin (Ecotrin) 325 mg PO DAILY [facility] Last Admin: 12/09/16 10:31 Dose: 325 mg Atazanavir (Reyataz) 200 mg PO BID [facility] Last Admin: 12/09/16 10:34 Dose: 200 mg Emtricitabine/Tenofovir (Truvada 200 Mg-300 Mg) 1 tab PO DAILY [facility] Last Admin: 12/09/16 10:33 Dose: 1 tab Enoxaparin Sodium (Lovenox) 40 mg SC DAILY [facility] Last Admin: 12/09/16 10:31 Dose: 40 mg Meropenem 1 gm/ Sodium (Chloride) 100 mls @ 100 mls/hr IVPB Q12H [facility] Last Admin: 12/09/16 01:09 Dose: 100 mls/hr Gentamicin Sulfate/Sodium Chloride (Gentamicin 60mg/50ml Ns) 50 mls @ 50 mls/ hr IVPB Q8 [facility] Last Admin: 12/09/16 05:09 Dose: 50 mls/hr Ampicillin 2 gm/ Sodium (Chloride) 100 mls @ 50 mls/hr IVPB Q6H [facility] Last Admin: 12/09/16 12:00 Dose: 50 mls/hr Lisinopril (Zestril) 20 mg PO DAILY [facility] Last Admin: 12/09/16 10:31 Dose: 20 mg Pantoprazole Sodium (Protonix Ec Tab) 40 mg PO DAILY [facility] Last Admin: 12/09/16 10:31 Dose: 40 mg Temazepam (Restoril) 15 mg PO HS PRN PRN Reason: Agitation Last Admin: 12/09/16 02:55 Dose: 15 mg - Labs Labs: PT 12.7 SECONDS (9.7-12.2) H 12/06/16 20:01 INR 1.1 12/06/16 20:01 APTT 33 SECONDS (21-34) 12/06/16 20:01 - Constitutional Appears: Non-toxic, No Acute Distress - Eye Exam Eye Exam: EOMI, PERRL - ENT Exam ENT Exam: Mucous Membranes Dry - Respiratory Exam Respiratory Exam: Clear to Ausculation Bilateral. absent: Rales, Rhonchi, Wheezes - Cardiovascular Exam Cardiovascular Exam: RRR, +S1, +S2 - GI/Abdominal Exam GI & Abdominal Exam: Soft, Normal Bowel Sounds. absent: Distended, Firm, Guarding, Rigid, Tenderness, Organomegaly - Extremities Exam Extremities Exam: Normal Inspection. absent: Pedal Edema - Neurological Exam Neuro motor strength exam: Right Upper Extremity: 0, Right Lower Extremity: 0 - Psychiatric Exam Psychiatric exam: Flat Affect - Skin Skin Exam: Dry, Warm Assessment and Plan - Assessment and Plan (Free Text) Assessment: Patient is a 61yo female with PMHx significant for CVA with right hemiplegia, HIV on HAART, HCV (Ab + in 2014), HTN, DM, COPD, OA who presented to the ED with chest and left leg pain. Our service was consulted for abnormal LFTs and HCV Ab positivity. -Abnormal LFTs -HCV Ab + -HIV on HAART Plan: -Patient unable to communicate if she has been treated for HCV previously -Abdominal U/S reviewed - hepatic steatosis -Await autoimmune lab work and HCV viral load/genotype -Avoid hepatotoxic medications -Patient can follow up outpatient in GI on D/C for evaluation for treatment of HCV or can discuss with her ID physician -No further work up intending while inpatient -Will sign off. Thank you for allowing us to take part in the care of your patient. <Lane Calderon MD - Last Filed: 12/09/16 20:34> Objective - Vital Signs/Intake and Output Vital Signs (last 24 hours): Temp Pulse Resp BP Pulse Ox 98.1 F 54 L 20 141/86 100 12/09/16 16:05 12/09/16 16:05 12/09/16 16:05 12/09/16 16:05 12/09/16 16:05 - Medications Medications: Current Medications Acyclovir (Zovirax) 400 mg PO BID [facility] Last Admin: 12/09/16 17:26 Dose: 400 mg Aspirin (Ecotrin) 325 mg PO DAILY [facility] Last Admin: 12/09/16 10:31 Dose: 325 mg Atazanavir (Reyataz) 200 mg PO BID [facility] Last Admin: 12/09/16 17:25 Dose: 200 mg Emtricitabine/Tenofovir (Truvada 200 Mg-300 Mg) 1 tab PO DAILY [facility] Last Admin: 12/09/16 10:33 Dose: 1 tab Enoxaparin Sodium (Lovenox) 40 mg SC DAILY [facility] Last Admin: 12/09/16 10:31 Dose: 40 mg Meropenem 1 gm/ Sodium (Chloride) 100 mls @ 100 mls/hr IVPB Q12H [facility] Last Admin: 12/09/16 13:00 Dose: 100 mls/hr Gentamicin Sulfate/Sodium Chloride (Gentamicin 60mg/50ml Ns) 50 mls @ 50 mls/ hr IVPB Q8 [facility] Last Admin: 12/09/16 14:00 Dose: 50 mls/hr Ampicillin 2 gm/ Sodium (Chloride) 100 mls @ 50 mls/hr IVPB Q6H [facility] Last Admin: 12/09/16 17:24 Dose: 50 mls/hr Lisinopril (Zestril) 20 mg PO DAILY [facility] Last Admin: 12/09/16 10:31 Dose: 20 mg Pantoprazole Sodium (Protonix Ec Tab) 40 mg PO DAILY [facility] Last Admin: 12/09/16 10:31 Dose: 40 mg Temazepam (Restoril) 15 mg PO HS PRN PRN Reason: Agitation Last Admin: 12/09/16 02:55 Dose: 15 mg - Labs Labs: 12/09/16 14:30 12/09/16 14:30 PT 12.7 SECONDS (9.7-12.2) H 12/06/16 20:01 INR 1.1 12/06/16 20:01 APTT 33 SECONDS (21-34) 12/06/16 20:01 Attending/Attestation - Attestation I have personally seen and examined this patient.: Yes I have fully participated in the care of the patient.: Yes I have reviewed all pertinent clinical information, including history, physical exam and plan: Yes Notes (Text): 12/09/16 20:32 Patient seen and examined with GI fellow on rounds. This is a 61 yr old female with PMHx significant for CVA with right hemiplegia, HIV on HAART, HCV (Ab + in 2014), HTN, DM, COPD, OA who presented to the ED with chest and left leg pain perhaps due to HAART medication induced neuropathy. Our service was consulted for abnormal LFTs and HCV Ab positivity. Patient does not know if she was treated for HCV. Abdominal sono reviewed. Needs genotype and viral load for outpatient treatment. Can follow in GI clinic upon discharge. -No further work up intending while inpatient -Will sign off. Thank you for allowing us to take part in the care of your patient.
[2016-12-09 14:37] LABS: BASO % 0.9 % (0.0-2.0); EOS # 0.2 K/uL (0.0-0.7); EOS % 4.2 % (0.0-4.0); HEMATOCRIT 34.1 % (34.0-47.0); LYMPH # 2.2 K/uL (1.0-4.3); MEAN CORPUSCULAR HEMOGLOBIN 28.3 pg (27.0-31.0); MEAN CORPUSCULAR HGB CONC 33.1 g/dL (33.0-37.0); MEAN PLATELET VOLUME 9.4 fL (7.2-11.7); MONO # 0.4 K/uL (0.0-0.8); MONO % 8.6 % (0.0-10.0); RED CELL DISTRIBUTION WIDTH 14.8 % (11.5-14.5); WHITE BLOOD COUNT 4.8 K/uL (4.8-10.8)
[2016-12-09 14:39] LABS: MEAN CELL VOLUME 85.7 fL (81.0-99.0)
[2016-12-09 14:53] LABS: CHLORIDE 103 mmol/L (98-107); POTASSIUM 3.5 mmol/L (3.6-5.2); SODIUM 139 mmol/L (132-148)
[2016-12-09 14:55] LABS: AST/SGOT 112 U/L (14-36); BILIRUBIN,TOTAL 0.8 mg/dL (0.2-1.3); CARBON DIOXIDE 22 mmol/L (22-30); GFR AFRICAN-AMERICAN > 60
[2016-12-09 14:56] LABS: ALB/GLOB RATIO 0.7 (1.0-2.1); ALKALINE PHOSPHATASE 80 U/L (38-126); ALT/SGPT 88 U/L (9-52); BLOOD UREA NITROGEN 18 mg/dL (7-17); CALCIUM 8.2 mg/dl (8.6-10.4); GLUCOSE,RANDOM 193 mg/dL (65-105); PHOSPHOROUS 2.7 mg/dL (2.5-4.5); TOTAL PROTEIN 7.4 g/dL (6.3-8.3)
[2016-12-09 14:57] LABS: MAGNESIUM 1.8 mg/dL (1.6-2.3)
--- NOTE | 2016-12-09 14:59 | CP.PCM.PN ---
Subjective - Date & Time of Evaluation Date of Evaluation: 12/09/16 Time of Evaluation: 02:00 - Subjective Subjective: clinically same on iv abx Objective - Vital Signs/Intake and Output Vital Signs (last 24 hours): Temp Pulse Resp BP Pulse Ox 97.6 F 69 17 112/71 99 12/09/16 07:30 12/09/16 07:35 12/09/16 07:30 12/09/16 07:30 12/09/16 07:30 Intake and Output: 12/09/16 12/09/16 06:59 18:59 Intake Total 400 Balance 400 - Medications Medications: Current Medications Acyclovir (Zovirax) 400 mg PO BID [facility] Last Admin: 12/09/16 10:34 Dose: 400 mg Aspirin (Ecotrin) 325 mg PO DAILY [facility] Last Admin: 12/09/16 10:31 Dose: 325 mg Atazanavir (Reyataz) 200 mg PO BID [facility] Last Admin: 12/09/16 10:34 Dose: 200 mg Emtricitabine/Tenofovir (Truvada 200 Mg-300 Mg) 1 tab PO DAILY [facility] Last Admin: 12/09/16 10:33 Dose: 1 tab Enoxaparin Sodium (Lovenox) 40 mg SC DAILY [facility] Last Admin: 12/09/16 10:31 Dose: 40 mg Meropenem 1 gm/ Sodium (Chloride) 100 mls @ 100 mls/hr IVPB Q12H [facility] Last Admin: 12/09/16 13:00 Dose: 100 mls/hr Gentamicin Sulfate/Sodium Chloride (Gentamicin 60mg/50ml Ns) 50 mls @ 50 mls/ hr IVPB Q8 [facility] Last Admin: 12/09/16 14:00 Dose: 50 mls/hr Ampicillin 2 gm/ Sodium (Chloride) 100 mls @ 50 mls/hr IVPB Q6H [facility] Last Admin: 12/09/16 12:00 Dose: 50 mls/hr Lisinopril (Zestril) 20 mg PO DAILY [facility] Last Admin: 12/09/16 10:31 Dose: 20 mg Pantoprazole Sodium (Protonix Ec Tab) 40 mg PO DAILY [facility] Last Admin: 12/09/16 10:31 Dose: 40 mg Temazepam (Restoril) 15 mg PO HS PRN PRN Reason: Agitation Last Admin: 12/09/16 02:55 Dose: 15 mg - Labs Labs: 12/09/16 14:30 12/09/16 14:30 PT 12.7 SECONDS (9.7-12.2) H 12/06/16 20:01 INR 1.1 12/06/16 20:01 APTT 33 SECONDS (21-34) 12/06/16 20:01 - Constitutional Appears: Well - Head Exam Head Exam: ATRAUMATIC, NORMAL INSPECTION, NORMOCEPHALIC - Eye Exam Eye Exam: EOMI, Normal appearance, PERRL Pupil Exam: NORMAL ACCOMODATION, PERRL - ENT Exam ENT Exam: Mucous Membranes Moist, Normal Exam - Neck Exam Neck Exam: Full ROM, Normal Inspection. absent: Lymphadenopathy - Respiratory Exam Respiratory Exam: Decreased Breath Sounds - Cardiovascular Exam Cardiovascular Exam: REGULAR RHYTHM, +S1, +S2 - GI/Abdominal Exam GI & Abdominal Exam: Soft, Diminished Bowel Sounds - Rectal Exam Rectal Exam: NORMAL INSPECTION - Neurological Exam Neurological Exam: Alert, Awake Assessment and Plan (1) AIDS (acquired immune deficiency syndrome) Status: Acute (2) Abdominal discomfort Status: Acute (3) Abdominal pain Status: Acute (4) Abdominal pain Status: Acute (5) Abdominal pain in female Status: Acute (6) Back pain Status: Acute (7) Chest pain Status: Acute (8) Complicated UTI (urinary tract infection) Status: Acute (9) Constipation Status: Acute (10) Fever Status: Acute (11) Hypokalemia Status: Acute (12) Leg pain Status: Acute (13) Leg pain, right Status: Acute (14) Multiple drug resistant organism (MDRO) culture positive Status: Acute (15) Nausea Status: Acute (16) Prophylactic measure Status: Acute (17) Right-sided muscle weakness Status: Acute (18) UTI (urinary tract infection) Status: Acute (19) Vomiting Status: Acute (20) Chronic pain Status: Chronic (21) HIV disease Status: Chronic (22) Hepatitis C Status: Chronic - Assessment and Plan (Free Text) Plan: simin iv abx as per dr frnaklin f/u with dr meeks f/u with cardio and gi simin other meds as ordered mx as ordered f/u labs
[2016-12-09] MEDS ORDERED: Potassium Chloride 20 mEq ER Tab PO STA (15:40)
[2016-12-10] MEDS: Meropenem 1 GM in Sodium Chloride 0.9% 100 ML IVPB SCH ×2 (02:20→13:00)
[2016-12-10] MEDS: NS IVPB SCH ×3 (05:10→21:00)
[2016-12-10] MEDS: GENTAMICIN IVPB SCH ×3 (05:10→21:00)
--- NOTE | 2016-12-10 08:23 | CP.PCM.PN ---
Subjective - Date & Time of Evaluation Date of Evaluation: 12/10/16 Time of Evaluation: 08:10 - Subjective Subjective: no cp no sob Objective - Vital Signs/Intake and Output Vital Signs (last 24 hours): Temp Pulse Resp BP Pulse Ox 97.9 F 68 20 126/79 97 12/10/16 07:00 12/10/16 07:30 12/10/16 07:00 12/10/16 07:00 12/10/16 07:00 - Medications Medications: Current Medications Acyclovir (Zovirax) 400 mg PO BID [facility] Last Admin: 12/09/16 17:26 Dose: 400 mg Aspirin (Ecotrin) 325 mg PO DAILY [facility] Last Admin: 12/09/16 10:31 Dose: 325 mg Atazanavir (Reyataz) 200 mg PO BID [facility] Last Admin: 12/09/16 17:25 Dose: 200 mg Emtricitabine/Tenofovir (Truvada 200 Mg-300 Mg) 1 tab PO DAILY [facility] Last Admin: 12/09/16 10:33 Dose: 1 tab Enoxaparin Sodium (Lovenox) 40 mg SC DAILY [facility] Last Admin: 12/09/16 10:31 Dose: 40 mg Meropenem 1 gm/ Sodium (Chloride) 100 mls @ 100 mls/hr IVPB Q12H [facility] Last Admin: 12/10/16 02:20 Dose: 100 mls/hr Gentamicin Sulfate/Sodium Chloride (Gentamicin 60mg/50ml Ns) 50 mls @ 50 mls/ hr IVPB Q8 [facility] Last Admin: 12/10/16 05:10 Dose: 50 mls/hr Ampicillin 2 gm/ Sodium (Chloride) 100 mls @ 50 mls/hr IVPB Q6H [facility] Last Admin: 12/10/16 06:55 Dose: 50 mls/hr Lisinopril (Zestril) 20 mg PO DAILY [facility] Last Admin: 12/09/16 10:31 Dose: 20 mg Pantoprazole Sodium (Protonix Ec Tab) 40 mg PO DAILY [facility] Last Admin: 12/09/16 10:31 Dose: 40 mg Temazepam (Restoril) 15 mg PO HS PRN PRN Reason: Agitation Last Admin: 12/10/16 00:09 Dose: 15 mg - Labs Labs: 12/09/16 14:30 12/09/16 14:30 PT 12.7 SECONDS (9.7-12.2) H 12/06/16 20:01 INR 1.1 12/06/16 20:01 APTT 33 SECONDS (21-34) 12/06/16 20:01 - Constitutional Appears: Well - Head Exam Head Exam: ATRAUMATIC - Eye Exam Eye Exam: Normal appearance - ENT Exam ENT Exam: Mucous Membranes Moist - Respiratory Exam Respiratory Exam: Clear to Ausculation Bilateral - Cardiovascular Exam Cardiovascular Exam: REGULAR RHYTHM - GI/Abdominal Exam GI & Abdominal Exam: Soft - Exam External exam: NORMAL EXTERNAL EXAM - Extremities Exam Extremities Exam: Normal Inspection - Neurological Exam Neurological Exam: Awake - Psychiatric Exam Psychiatric exam: Normal Mood - Skin Skin Exam: Dry Assessment and Plan (1) AIDS (acquired immune deficiency syndrome) Assessment & Plan: Pt with nlormal enzyme cp resolved out pt follow up medical management Status: Acute (2) Chest pain Status: Acute
--- NOTE | 2016-12-10 09:01 | CARD ---
APPROVED REPORT EKG Measurement Heart [id number] <Conclusion> Normal sinus rhythm early r wave progression
[2016-12-10] MEDS: Pantoprazole 40 mg EC Tab PO SCH (10:18)
[2016-12-10] MEDS: Aspirin 325 mg EC Tablets PO SCH (10:18)
[2016-12-10] MEDS: Enoxaparin 40 mg Syringe SC SCH (10:19)
[2016-12-10] MEDS: ATAZANAVIR PO SCH ×2 (10:20→18:46)
[2016-12-10] MEDS: Emtricitabine-Tenofovir 200 mg-300 mg Tab PO SCH (10:21)
--- NOTE | 2016-12-10 15:31 | CP.PCM.PN ---
Subjective - Date & Time of Evaluation Date of Evaluation: 12/10/16 Time of Evaluation: 15:00 - Subjective Subjective: afebrile pt clinically same ongoing iv rx multiple consultants following Objective - Vital Signs/Intake and Output Vital Signs (last 24 hours): Temp Pulse Resp BP Pulse Ox 97.9 F 68 20 126/79 97 12/10/16 07:00 12/10/16 07:30 12/10/16 07:00 12/10/16 07:00 12/10/16 07:00 - Medications Medications: Current Medications Acyclovir (Zovirax) 400 mg PO BID [facility] Last Admin: 12/10/16 10:21 Dose: 400 mg Aspirin (Ecotrin) 325 mg PO DAILY [facility] Last Admin: 12/10/16 10:18 Dose: 325 mg Atazanavir (Reyataz) 200 mg PO BID [facility] Last Admin: 12/10/16 10:20 Dose: 200 mg Emtricitabine/Tenofovir (Truvada 200 Mg-300 Mg) 1 tab PO DAILY [facility] Last Admin: 12/10/16 10:21 Dose: 1 tab Enoxaparin Sodium (Lovenox) 40 mg SC DAILY [facility] Last Admin: 12/10/16 10:19 Dose: 40 mg Meropenem 1 gm/ Sodium (Chloride) 100 mls @ 100 mls/hr IVPB Q12H [facility] Last Admin: 12/10/16 13:00 Dose: 100 mls/hr Gentamicin Sulfate/Sodium Chloride (Gentamicin 60mg/50ml Ns) 50 mls @ 50 mls/ hr IVPB Q8 [facility] Last Admin: 12/10/16 05:10 Dose: 50 mls/hr Ampicillin 2 gm/ Sodium (Chloride) 100 mls @ 50 mls/hr IVPB Q6H [facility] Last Admin: 12/10/16 12:00 Dose: 50 mls/hr Lisinopril (Zestril) 20 mg PO DAILY [facility] Last Admin: 12/10/16 10:18 Dose: 20 mg Pantoprazole Sodium (Protonix Ec Tab) 40 mg PO DAILY [facility] Last Admin: 12/10/16 10:18 Dose: 40 mg Temazepam (Restoril) 15 mg PO HS PRN PRN Reason: Agitation Last Admin: 12/10/16 00:09 Dose: 15 mg - Labs Labs: 12/09/16 14:30 12/09/16 14:30 PT 12.7 SECONDS (9.7-12.2) H 12/06/16 20:01 INR 1.1 12/06/16 20:01 APTT 33 SECONDS (21-34) 12/06/16 20:01 - Constitutional Appears: No Acute Distress - Head Exam Head Exam: ATRAUMATIC, NORMAL INSPECTION, NORMOCEPHALIC - Eye Exam Eye Exam: EOMI, Normal appearance, PERRL Pupil Exam: NORMAL ACCOMODATION, PERRL - ENT Exam ENT Exam: Mucous Membranes Moist - Neck Exam Neck Exam: Full ROM - Respiratory Exam Respiratory Exam: Decreased Breath Sounds - Cardiovascular Exam Cardiovascular Exam: REGULAR RHYTHM, +S1, +S2 - GI/Abdominal Exam GI & Abdominal Exam: Soft, Diminished Bowel Sounds - Rectal Exam Rectal Exam: Deferred - Neurological Exam Neurological Exam: Alert Assessment and Plan (1) AIDS (acquired immune deficiency syndrome) Status: Acute (2) Abdominal discomfort Status: Acute (3) Abdominal pain Status: Acute (4) Abdominal pain Status: Acute (5) Abdominal pain in female Status: Acute (6) Back pain Status: Acute (7) Chest pain Status: Acute (8) Complicated UTI (urinary tract infection) Status: Acute (9) Constipation Status: Acute (10) Fever Status: Acute (11) Hypokalemia Status: Acute (12) Leg pain Status: Acute (13) Leg pain, right Status: Acute (14) Multiple drug resistant organism (MDRO) culture positive Status: Acute (15) Nausea Status: Acute (16) Prophylactic measure Status: Acute (17) Right-sided muscle weakness Status: Acute (18) UTI (urinary tract infection) Status: Acute (19) Vomiting Status: Acute (20) Chronic pain Status: Chronic (21) HIV disease Status: Chronic (22) Hepatitis C Status: Chronic - Assessment and Plan (Free Text) Plan: f/u with multiple consultants iv abx simin same mx as ordered f/u labs monitor for fever
--- NOTE | 2016-12-10 15:38 | CP.PCM.PN ---
Subjective - Date & Time of Evaluation Date of Evaluation: 12/10/16 Time of Evaluation: 09:00 - Subjective Subjective: improving cd4 688 on arv rx + UTI with MDRO may need eval Objective - Vital Signs/Intake and Output Vital Signs (last 24 hours): Temp Pulse Resp BP Pulse Ox 97.9 F 68 20 126/79 97 12/10/16 07:00 12/10/16 07:30 12/10/16 07:00 12/10/16 07:00 12/10/16 07:00 - Medications Medications: Current Medications Acyclovir (Zovirax) 400 mg PO BID [facility] Last Admin: 12/10/16 10:21 Dose: 400 mg Aspirin (Ecotrin) 325 mg PO DAILY [facility] Last Admin: 12/10/16 10:18 Dose: 325 mg Atazanavir (Reyataz) 200 mg PO BID [facility] Last Admin: 12/10/16 10:20 Dose: 200 mg Emtricitabine/Tenofovir (Truvada 200 Mg-300 Mg) 1 tab PO DAILY [facility] Last Admin: 12/10/16 10:21 Dose: 1 tab Enoxaparin Sodium (Lovenox) 40 mg SC DAILY [facility] Last Admin: 12/10/16 10:19 Dose: 40 mg Meropenem 1 gm/ Sodium (Chloride) 100 mls @ 100 mls/hr IVPB Q12H [facility] Last Admin: 12/10/16 13:00 Dose: 100 mls/hr Gentamicin Sulfate/Sodium Chloride (Gentamicin 60mg/50ml Ns) 50 mls @ 50 mls/ hr IVPB Q8 [facility] Last Admin: 12/10/16 05:10 Dose: 50 mls/hr Ampicillin 2 gm/ Sodium (Chloride) 100 mls @ 50 mls/hr IVPB Q6H [facility] Last Admin: 12/10/16 12:00 Dose: 50 mls/hr Lisinopril (Zestril) 20 mg PO DAILY [facility] Last Admin: 12/10/16 10:18 Dose: 20 mg Pantoprazole Sodium (Protonix Ec Tab) 40 mg PO DAILY [facility] Last Admin: 12/10/16 10:18 Dose: 40 mg Temazepam (Restoril) 15 mg PO HS PRN PRN Reason: Agitation Last Admin: 12/10/16 00:09 Dose: 15 mg - Labs Labs: 12/09/16 14:30 12/09/16 14:30 PT 12.7 SECONDS (9.7-12.2) H 12/06/16 20:01 INR 1.1 12/06/16 20:01 APTT 33 SECONDS (21-34) 12/06/16 20:01 - Constitutional Appears: Non-toxic, Cachectic, Chronically Ill - Head Exam Head Exam: NORMOCEPHALIC - Eye Exam Eye Exam: PERRL. absent: Scleral icterus - ENT Exam ENT Exam: Mucous Membranes Dry - Neck Exam Neck Exam: absent: Lymphadenopathy - Respiratory Exam Respiratory Exam: Decreased Breath Sounds, Rhonchi - Cardiovascular Exam Cardiovascular Exam: REGULAR RHYTHM, +S1, +S2 - GI/Abdominal Exam GI & Abdominal Exam: Distended, Soft - Rectal Exam Rectal Exam: Deferred - Exam Exam: NORMAL INSPECTION - Extremities Exam Extremities Exam: absent: Pedal Edema - Back Exam Back Exam: absent: CVA tenderness (L), CVA tenderness (R) - Neurological Exam Neurological Exam: Alert, Awake, Oriented x3 Neuro motor strength exam: Left Upper Extremity: 4, Right Upper Extremity: 2/1, Left Lower Extremity: 4, Right Lower Extremity: 2/1 - Psychiatric Exam Psychiatric exam: Depressed - Skin Skin Exam: Dry Assessment and Plan (1) AIDS (acquired immune deficiency syndrome) Status: Acute (2) Complicated UTI (urinary tract infection) Status: Acute (3) Multiple drug resistant organism (MDRO) culture positive Status: Acute (4) Right-sided muscle weakness Status: Acute (5) Hepatitis C Status: Chronic - Assessment and Plan (Free Text) Assessment: consider psych eval
[2016-12-10] MEDS ORDERED: Potassium Chloride 10 mEq ER Tab PO STA ×2 (15:46→17:00)
[2016-12-11] MEDS: Meropenem 1 GM in Sodium Chloride 0.9% 100 ML IVPB SCH ×2 (02:15→13:30)
[2016-12-11] MEDS: GENTAMICIN IVPB SCH ×3 (06:35→21:07)
[2016-12-11] MEDS: NS IVPB SCH ×3 (06:35→21:07)
--- NOTE | 2016-12-11 09:02 | CP.PCM.PN ---
<Noé Pineda H - Last Filed: 12/11/16 14:18> Subjective - Date & Time of Evaluation Date of Evaluation: 12/11/16 Time of Evaluation: 10:00 - Subjective Subjective: Dr. Larose service: Patient is seen and examined in room. Unable to obtain much history she is still complaining of weakness though. Objective - Vital Signs/Intake and Output Vital Signs (last 24 hours): Temp Pulse Resp BP Pulse Ox 98 F 67 17 114/70 98 12/11/16 07:20 12/11/16 07:30 12/11/16 07:20 12/11/16 07:20 12/11/16 07:20 - Medications Medications: Current Medications Acyclovir (Zovirax) 400 mg PO BID [facility] Last Admin: 12/10/16 18:46 Dose: 400 mg Aspirin (Ecotrin) 325 mg PO DAILY [facility] Last Admin: 12/10/16 10:18 Dose: 325 mg Atazanavir (Reyataz) 200 mg PO BID [facility] Last Admin: 12/10/16 18:46 Dose: 200 mg Emtricitabine/Tenofovir (Truvada 200 Mg-300 Mg) 1 tab PO DAILY [facility] Last Admin: 12/10/16 10:21 Dose: 1 tab Enoxaparin Sodium (Lovenox) 40 mg SC DAILY [facility] Last Admin: 12/10/16 10:19 Dose: 40 mg Meropenem 1 gm/ Sodium (Chloride) 100 mls @ 100 mls/hr IVPB Q12H [facility] Last Admin: 12/11/16 02:15 Dose: 100 mls/hr Gentamicin Sulfate/Sodium Chloride (Gentamicin 60mg/50ml Ns) 50 mls @ 50 mls/ hr IVPB Q8 [facility] Last Admin: 12/11/16 06:35 Dose: 50 mls/hr Ampicillin 2 gm/ Sodium (Chloride) 100 mls @ 50 mls/hr IVPB Q6H [facility] Last Admin: 12/11/16 05:30 Dose: 50 mls/hr Lisinopril (Zestril) 20 mg PO DAILY [facility] Last Admin: 12/10/16 10:18 Dose: 20 mg Pantoprazole Sodium (Protonix Ec Tab) 40 mg PO DAILY [facility] Last Admin: 12/10/16 10:18 Dose: 40 mg Temazepam (Restoril) 15 mg PO HS PRN PRN Reason: Agitation Last Admin: 12/10/16 00:09 Dose: 15 mg - Labs Labs: 12/09/16 14:30 12/09/16 14:30 PT 12.7 SECONDS (9.7-12.2) H 12/06/16 20:01 INR 1.1 12/06/16 20:01 APTT 33 SECONDS (21-34) 12/06/16 20:01 - Constitutional Appears: Non-toxic, Confused, Chronically Ill - Head Exam Head Exam: NORMAL INSPECTION - Eye Exam Eye Exam: Normal appearance. absent: Scleral icterus Pupil Exam: NORMAL ACCOMODATION - Respiratory Exam Respiratory Exam: Clear to Ausculation Bilateral. absent: Rhonchi, Wheezes - Cardiovascular Exam Cardiovascular Exam: absent: REGULAR RHYTHM - GI/Abdominal Exam GI & Abdominal Exam: Soft, Tenderness, Normal Bowel Sounds - Extremities Exam Extremities Exam: Normal Inspection. absent: Pedal Edema - Back Exam Back Exam: NORMAL INSPECTION Assessment and Plan - Assessment and Plan (Free Text) Assessment: Assessment and Plan (1) Chest pain Assessment & Plan: 12/08: D/C tele, see consult note for Dr. Callahan Patient admitted for chest pain, cardiac enzymes have been negative, Dr. Callahan consulted for cardiology. Status: Acute (2) AIDS (acquired immune deficiency syndrome) Assessment & Plan: 12/08: Alanna consulted, follow viral load and cd 4 count continue her home antiviral medication, Dr. Mondragon consulted. Status: Acute (3) Complicated UTI (urinary tract infection) Assessment & Plan: 12/11: Spoke to Dr. Márquez who has asked for a flores to be inserted and volume of output be measured. Continue IV antibiotics per Dr. Mondragon. Day 5 of IV antibiotics. 12/08: culture is ESBL, patient on 2gram of Ampicillian per Alanna. Follow up recs by Dr. Márquez Urology consult, help appreciated. Patient has a history of reccurent UTI that were ESBL gram negative. Have consulted Dr. Mondragon and Dr. Muniz respectively. Status: Acute (4) Hepatitis C Assessment & Plan: 12/11: Patient will follow up Dr. Cruz as outpatient. 12/08: US shows hepatic steatosis, follow up Hep C viral count and genotype. Follow up GI consult. Patient has elevated LFTs, on chart review she tested positive for Hep C about 2 years ago. Have consulted Dr. Cruz GI applications consultant. 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 physical therapy and and occupational therapy ordered. Status: Acute (6) Prophylactic measure Assessment & Plan: Protonix and Lovenox ordered for prophylaxis. Status: Acute <Jessica Larose S - Last Filed: 12/11/16 20:30> Objective - Vital Signs/Intake and Output Vital Signs (last 24 hours): Temp Pulse Resp BP Pulse Ox 97.4 F L 72 18 132/71 97 12/11/16 16:15 12/11/16 16:15 12/11/16 16:15 12/11/16 16:15 12/11/16 16:15 Intake and Output: 12/11/16 12/12/16 18:59 06:59 Output Total 425 Balance -425 - Medications Medications: Current Medications Acyclovir (Zovirax) 400 mg PO BID [facility] Last Admin: 12/11/16 19:15 Dose: 400 mg Aspirin (Ecotrin) 325 mg PO DAILY [facility] Last Admin: 12/11/16 09:15 Dose: 325 mg Atazanavir (Reyataz) 200 mg PO BID [facility] Last Admin: 12/11/16 19:15 Dose: 200 mg Emtricitabine/Tenofovir (Truvada 200 Mg-300 Mg) 1 tab PO DAILY [facility] Last Admin: 12/11/16 09:15 Dose: 1 tab Enoxaparin Sodium (Lovenox) 40 mg SC DAILY [facility] Last Admin: 12/11/16 09:14 Dose: 40 mg Meropenem 1 gm/ Sodium (Chloride) 100 mls @ 100 mls/hr IVPB Q12H [facility] Last Admin: 12/11/16 13:30 Dose: 100 mls/hr Gentamicin Sulfate/Sodium Chloride (Gentamicin 60mg/50ml Ns) 50 mls @ 50 mls/ hr IVPB Q8 [facility] Last Admin: 12/11/16 14:00 Dose: 50 mls/hr Ampicillin 2 gm/ Sodium (Chloride) 100 mls @ 50 mls/hr IVPB Q6H [facility] Last Admin: 12/11/16 19:12 Dose: 50 mls/hr Lisinopril (Zestril) 20 mg PO DAILY [facility] Last Admin: 12/11/16 09:14 Dose: 20 mg Pantoprazole Sodium (Protonix Ec Tab) 40 mg PO DAILY [facility] Last Admin: 12/11/16 09:14 Dose: 40 mg Temazepam (Restoril) 15 mg PO HS PRN PRN Reason: Agitation Last Admin: 12/10/16 00:09 Dose: 15 mg - Labs Labs: 12/11/16 11:20 12/11/16 11:20 PT 12.7 SECONDS (9.7-12.2) H 12/06/16 20:01 INR 1.1 12/06/16 20:01 APTT 33 SECONDS (21-34) 12/06/16 20:01 Attending/Attestation - Attestation I have personally seen and examined this patient.: Yes I have fully participated in the care of the patient.: Yes I have reviewed all pertinent clinical information, including history, physical exam and plan: Yes Notes (Text): 12/11/16 20:29 case seen and discussed [facility] staff and resident mx as ordered
[2016-12-11] MEDS: Enoxaparin 40 mg Syringe SC SCH (09:14)
[2016-12-11] MEDS: Pantoprazole 40 mg EC Tab PO SCH (09:14)
[2016-12-11] MEDS: Emtricitabine-Tenofovir 200 mg-300 mg Tab PO SCH (09:15)
[2016-12-11] MEDS: Aspirin 325 mg EC Tablets PO SCH (09:15)
[2016-12-11] MEDS: ATAZANAVIR PO SCH ×2 (09:16→19:15)
[2016-12-11 11:37] LABS: BASO # 0.1 K/uL (0.0-0.2); BASO % 1.4 % (0.0-2.0); EOS # 0.3 K/uL (0.0-0.7); EOS % 3.7 % (0.0-4.0); HEMATOCRIT 37.2 % (34.0-47.0); LYMPH # 3.4 K/uL (1.0-4.3); MEAN CELL VOLUME 85.3 fL (81.0-99.0); MEAN CORPUSCULAR HEMOGLOBIN 28.8 pg (27.0-31.0); MEAN CORPUSCULAR HGB CONC 33.8 g/dL (33.0-37.0); MONO # 0.3 K/uL (0.0-0.8); MONO % 4.2 % (0.0-10.0); NRBC % 0.1 % (0.0-2.0); RED CELL DISTRIBUTION WIDTH 14.6 % (11.5-14.5)
[2016-12-11 11:40] LABS: WHITE BLOOD COUNT 7.4 K/uL (4.8-10.8)
[2016-12-11 11:55] LABS: CHLORIDE 97 mmol/L (98-107)
[2016-12-11 11:56] LABS: POTASSIUM 3.5 mmol/L (3.6-5.2); SODIUM 137 mmol/L (132-148)
[2016-12-11 11:58] LABS: ALB/GLOB RATIO 0.8 (1.0-2.1); ALKALINE PHOSPHATASE 105 U/L (38-126); ALT/SGPT 93 U/L (9-52); AST/SGOT 120 U/L (14-36); BILIRUBIN,TOTAL 0.7 mg/dL (0.2-1.3); BLOOD UREA NITROGEN 9 mg/dL (7-17); CARBON DIOXIDE 26 mmol/L (22-30); GFR AFRICAN-AMERICAN > 60; GLUCOSE,RANDOM 178 mg/dL (65-105); TOTAL PROTEIN 8.6 g/dL (6.3-8.3)
[2016-12-11 11:59] LABS: CALCIUM 8.7 mg/dl (8.6-10.4); MAGNESIUM 1.6 mg/dL (1.6-2.3); PHOSPHOROUS 3.7 mg/dL (2.5-4.5)
--- NOTE | 2016-12-11 12:12 | CP.PCM.PN ---
Subjective - Date & Time of Evaluation Date of Evaluation: 12/11/16 Time of Evaluation: 09:00 - Subjective Subjective: RX IN PROGRESS FOR UTI- MDRO+ WEAK AND DEPRESSED RIGHT SIDED WEAK ON ARV'S T CELLS OK Objective - Vital Signs/Intake and Output Vital Signs (last 24 hours): Temp Pulse Resp BP Pulse Ox 98 F 67 17 114/70 98 12/11/16 07:20 12/11/16 07:30 12/11/16 07:20 12/11/16 07:20 12/11/16 07:20 - Medications Medications: Current Medications Acyclovir (Zovirax) 400 mg PO BID [facility] Last Admin: 12/11/16 09:16 Dose: 400 mg Aspirin (Ecotrin) 325 mg PO DAILY [facility] Last Admin: 12/11/16 09:15 Dose: 325 mg Atazanavir (Reyataz) 200 mg PO BID [facility] Last Admin: 12/11/16 09:16 Dose: 200 mg Emtricitabine/Tenofovir (Truvada 200 Mg-300 Mg) 1 tab PO DAILY [facility] Last Admin: 12/11/16 09:15 Dose: 1 tab Enoxaparin Sodium (Lovenox) 40 mg SC DAILY [facility] Last Admin: 12/11/16 09:14 Dose: 40 mg Meropenem 1 gm/ Sodium (Chloride) 100 mls @ 100 mls/hr IVPB Q12H [facility] Last Admin: 12/11/16 02:15 Dose: 100 mls/hr Gentamicin Sulfate/Sodium Chloride (Gentamicin 60mg/50ml Ns) 50 mls @ 50 mls/ hr IVPB Q8 [facility] Last Admin: 12/11/16 06:35 Dose: 50 mls/hr Ampicillin 2 gm/ Sodium (Chloride) 100 mls @ 50 mls/hr IVPB Q6H [facility] Last Admin: 12/11/16 05:30 Dose: 50 mls/hr Lisinopril (Zestril) 20 mg PO DAILY [facility] Last Admin: 12/11/16 09:14 Dose: 20 mg Pantoprazole Sodium (Protonix Ec Tab) 40 mg PO DAILY [facility] Last Admin: 12/11/16 09:14 Dose: 40 mg Temazepam (Restoril) 15 mg PO HS PRN PRN Reason: Agitation Last Admin: 12/10/16 00:09 Dose: 15 mg - Labs Labs: 12/11/16 11:20 12/11/16 11:20 PT 12.7 SECONDS (9.7-12.2) H 12/06/16 20:01 INR 1.1 12/06/16 20:01 APTT 33 SECONDS (21-34) 12/06/16 20:01 Assessment and Plan (1) AIDS (acquired immune deficiency syndrome) Status: Acute (2) Complicated UTI (urinary tract infection) Status: Acute (3) Multiple drug resistant organism (MDRO) culture positive Status: Acute (4) Right-sided muscle weakness Status: Acute (5) Hepatitis C Status: Chronic
[2016-12-11] MEDS ORDERED: Potassium Chloride 20 mEq ER Tab PO STA (14:05)
--- NOTE | 2016-12-11 18:50 | CP.PCM.PN ---
Subjective - Date & Time of Evaluation Date of Evaluation: 12/11/16 Time of Evaluation: 01:20 - Subjective Subjective: clinically same iv rx in progress as per dr franklin cardio and gi and uro following Objective - Vital Signs/Intake and Output Vital Signs (last 24 hours): Temp Pulse Resp BP Pulse Ox 97.4 F L 72 18 132/71 97 12/11/16 16:15 12/11/16 16:15 12/11/16 16:15 12/11/16 16:15 12/11/16 16:15 Intake and Output: 12/11/16 12/11/16 06:59 18:59 Output Total 425 Balance -425 - Medications Medications: Current Medications Acyclovir (Zovirax) 400 mg PO BID [facility] Last Admin: 12/11/16 09:16 Dose: 400 mg Aspirin (Ecotrin) 325 mg PO DAILY [facility] Last Admin: 12/11/16 09:15 Dose: 325 mg Atazanavir (Reyataz) 200 mg PO BID [facility] Last Admin: 12/11/16 09:16 Dose: 200 mg Emtricitabine/Tenofovir (Truvada 200 Mg-300 Mg) 1 tab PO DAILY [facility] Last Admin: 12/11/16 09:15 Dose: 1 tab Enoxaparin Sodium (Lovenox) 40 mg SC DAILY [facility] Last Admin: 12/11/16 09:14 Dose: 40 mg Meropenem 1 gm/ Sodium (Chloride) 100 mls @ 100 mls/hr IVPB Q12H [facility] Last Admin: 12/11/16 13:30 Dose: 100 mls/hr Gentamicin Sulfate/Sodium Chloride (Gentamicin 60mg/50ml Ns) 50 mls @ 50 mls/ hr IVPB Q8 [facility] Last Admin: 12/11/16 14:00 Dose: 50 mls/hr Ampicillin 2 gm/ Sodium (Chloride) 100 mls @ 50 mls/hr IVPB Q6H [facility] Last Admin: 12/11/16 12:00 Dose: 50 mls/hr Lisinopril (Zestril) 20 mg PO DAILY [facility] Last Admin: 12/11/16 09:14 Dose: 20 mg Pantoprazole Sodium (Protonix Ec Tab) 40 mg PO DAILY [facility] Last Admin: 12/11/16 09:14 Dose: 40 mg Temazepam (Restoril) 15 mg PO HS PRN PRN Reason: Agitation Last Admin: 12/10/16 00:09 Dose: 15 mg - Labs Labs: 12/11/16 11:20 12/11/16 11:20 PT 12.7 SECONDS (9.7-12.2) H 12/06/16 20:01 INR 1.1 12/06/16 20:01 APTT 33 SECONDS (21-34) 12/06/16 20:01 - Constitutional Appears: Well - Head Exam Head Exam: ATRAUMATIC, NORMAL INSPECTION, NORMOCEPHALIC - Eye Exam Eye Exam: EOMI, Normal appearance, PERRL Pupil Exam: NORMAL ACCOMODATION, PERRL - ENT Exam ENT Exam: Mucous Membranes Moist, Normal Exam - Neck Exam Neck Exam: Full ROM, Normal Inspection. absent: Lymphadenopathy - Respiratory Exam Respiratory Exam: Decreased Breath Sounds - Cardiovascular Exam Cardiovascular Exam: REGULAR RHYTHM, +S1, +S2 - GI/Abdominal Exam GI & Abdominal Exam: Soft, Diminished Bowel Sounds - Rectal Exam Rectal Exam: Deferred - Neurological Exam Neurological Exam: Alert, Awake Assessment and Plan (1) AIDS (acquired immune deficiency syndrome) Status: Acute (2) Abdominal discomfort Status: Acute (3) Abdominal pain Status: Acute (4) Abdominal pain Status: Acute (5) Abdominal pain in female Status: Acute (6) Back pain Status: Acute (7) Chest pain Status: Acute (8) Complicated UTI (urinary tract infection) Status: Acute (9) Constipation Status: Acute (10) Fever Status: Acute (11) Hypokalemia Status: Acute (12) Leg pain Status: Acute (13) Leg pain, right Status: Acute (14) Multiple drug resistant organism (MDRO) culture positive Status: Acute (15) Nausea Status: Acute (16) Prophylactic measure Status: Acute (17) Right-sided muscle weakness Status: Acute (18) UTI (urinary tract infection) Status: Acute (19) Vomiting Status: Acute (20) Chronic pain Status: Chronic (21) HIV disease Status: Chronic (22) Hepatitis C Status: Chronic - Assessment and Plan (Free Text) Plan: simin iv abx case discussed with dr franklin and dr guillen f/u with gi dr tucker uro simin mx as ordered f/u labs
--- NOTE | 2016-12-11 18:51 | CP.PCM.PN ---
<Yousuf Garcia - Last Filed: 12/11/16 18:48> Subjective - Date & Time of Evaluation Date of Evaluation: 12/11/16 Time of Evaluation: 18:48 - Subjective Subjective: Cardiology Progress Note Dr. Mistry Patient seen and examined at the bedside. No acute distress. No acute events overnight. Nursing staff reports no issues. Patient has complaint of weakness today. The patient denies fever, chills, changes in vision/hearing, headache, chest pain, shortness of breath, abdominal pain, N/V/D/C, changes in bowel/ bladder, and extremity paresthesias. Objective - Vital Signs/Intake and Output Vital Signs (last 24 hours): Temp Pulse Resp BP Pulse Ox 97.4 F L 72 18 132/71 97 12/11/16 16:15 12/11/16 16:15 12/11/16 16:15 12/11/16 16:15 12/11/16 16:15 Intake and Output: 12/11/16 12/11/16 06:59 18:59 Output Total 425 Balance -425 - Medications Medications: Current Medications Acyclovir (Zovirax) 400 mg PO BID [facility] Last Admin: 12/11/16 09:16 Dose: 400 mg Aspirin (Ecotrin) 325 mg PO DAILY [facility] Last Admin: 12/11/16 09:15 Dose: 325 mg Atazanavir (Reyataz) 200 mg PO BID [facility] Last Admin: 12/11/16 09:16 Dose: 200 mg Emtricitabine/Tenofovir (Truvada 200 Mg-300 Mg) 1 tab PO DAILY [facility] Last Admin: 12/11/16 09:15 Dose: 1 tab Enoxaparin Sodium (Lovenox) 40 mg SC DAILY [facility] Last Admin: 12/11/16 09:14 Dose: 40 mg Meropenem 1 gm/ Sodium (Chloride) 100 mls @ 100 mls/hr IVPB Q12H [facility] Last Admin: 12/11/16 13:30 Dose: 100 mls/hr Gentamicin Sulfate/Sodium Chloride (Gentamicin 60mg/50ml Ns) 50 mls @ 50 mls/ hr IVPB Q8 [facility] Last Admin: 12/11/16 14:00 Dose: 50 mls/hr Ampicillin 2 gm/ Sodium (Chloride) 100 mls @ 50 mls/hr IVPB Q6H [facility] Last Admin: 12/11/16 12:00 Dose: 50 mls/hr Lisinopril (Zestril) 20 mg PO DAILY [facility] Last Admin: 12/11/16 09:14 Dose: 20 mg Pantoprazole Sodium (Protonix Ec Tab) 40 mg PO DAILY [facility] Last Admin: 12/11/16 09:14 Dose: 40 mg Temazepam (Restoril) 15 mg PO HS PRN PRN Reason: Agitation Last Admin: 12/10/16 00:09 Dose: 15 mg - Labs Labs: 12/11/16 11:20 12/11/16 11:20 PT 12.7 SECONDS (9.7-12.2) H 12/06/16 20:01 INR 1.1 12/06/16 20:01 APTT 33 SECONDS (21-34) 12/06/16 20:01 - Constitutional Appears: Chronically Ill - Head Exam Head Exam: ATRAUMATIC, NORMAL INSPECTION, NORMOCEPHALIC - Eye Exam Eye Exam: EOMI, Normal appearance, PERRL - Neck Exam Neck Exam: Full ROM, Normal Inspection. absent: Lymphadenopathy - Respiratory Exam Respiratory Exam: Clear to Ausculation Bilateral, NORMAL BREATHING PATTERN. absent: Rhonchi, Wheezes - Cardiovascular Exam Cardiovascular Exam: REGULAR RHYTHM, RRR, +S1, +S2. absent: Murmur - GI/Abdominal Exam GI & Abdominal Exam: Soft, Normal Bowel Sounds. absent: Guarding, Rigid, Tenderness - Extremities Exam Extremities Exam: absent: Pedal Edema - Neurological Exam Neurological Exam: Alert, Awake, Oriented x3 - Skin Skin Exam: Dry, Intact, Normal Color, Warm Assessment and Plan - Assessment and Plan (Free Text) Assessment: This is a 61Y F with PMH HTN, HLD, multiple CVAs, COPD, HIV, Hep C admitted for 1) Chest pain - resolved 2) HTN 3) HLD 4) HIV 5) Hep C 6) Hx of multiple CVAs Plan: 1.) Chest Pain - Troponin neg x 3 - CKMB normal - TSH and HgbA1c normal - Cholesterol panel showed low HDL - Aspirin 325mg PO daily - Lisinopril 20mg PO daily - 12/06/16 EKG- NSR, normal axis, normal intervals, early R wave progression in precordial leads 2.) Prophylaxis - GI ppx: Protonix 40mg PO daily - DVT ppx: Lovenox 40mg SC daily Benitez Garcia PGY1 <Malcolm Mistry - Last Filed: 01/16/17 03:44> Objective - Vital Signs/Intake and Output Vital Signs (last 24 hours): Temp Pulse Resp BP Pulse Ox 98.3 F 85 20 145/87 97 12/12/16 16:00 12/12/16 17:30 12/12/16 16:00 12/12/16 16:00 12/12/16 16:00 - Labs Labs: 12/12/16 06:56 12/12/16 06:56 PT 12.7 SECONDS (9.7-12.2) H 12/06/16 20:01 INR 1.1 12/06/16 20:01 APTT 33 SECONDS (21-34) 12/06/16 20:01 Attending/Attestation - Attestation I have personally seen and examined this patient.: Yes I have fully participated in the care of the patient.: Yes I have reviewed all pertinent clinical information, including history, physical exam and plan: Yes Notes (Text): 01/16/17 03:44 trop and ckmb negatu=emmanuel resolution of cp outpt follow up
[2016-12-12 01:09] VITALS: RESP 20
[2016-12-12] MEDS: Meropenem 1 GM in Sodium Chloride 0.9% 100 ML IVPB SCH ×2 (01:36→13:06)
[2016-12-12] MEDS: GENTAMICIN IVPB SCH ×3 (05:34→13:05)
[2016-12-12] MEDS: NS IVPB SCH ×3 (05:34→13:05)
[2016-12-12 07:18] LABS: CHLORIDE 99 mmol/L (98-107)
[2016-12-12 07:19] LABS: POTASSIUM 3.5 mmol/L (3.6-5.2); SODIUM 137 mmol/L (132-148)
[2016-12-12 07:21] LABS: ALB/GLOB RATIO 0.7 (1.0-2.1); ALKALINE PHOSPHATASE 92 U/L (38-126); ALT/SGPT 72 U/L (9-52); AST/SGOT 86 U/L (14-36); BILIRUBIN,TOTAL 0.5 mg/dL (0.2-1.3); BLOOD UREA NITROGEN 11 mg/dL (7-17); CARBON DIOXIDE 26 mmol/L (22-30); GFR AFRICAN-AMERICAN > 60; TOTAL PROTEIN 7.4 g/dL (6.3-8.3)
[2016-12-12 07:22] LABS: BASO # 0.1 K/uL (0.0-0.2); BASO % 0.6 % (0.0-2.0); CALCIUM 8.2 mg/dl (8.6-10.4); EOS # 0.2 K/uL (0.0-0.7); EOS % 3.1 % (0.0-4.0); GLUCOSE,RANDOM 94 mg/dL (65-105); HEMATOCRIT 32.8 % (34.0-47.0); LYMPH # 4.1 K/uL (1.0-4.3); LYMPH % 51.1 % (20.0-40.0); MAGNESIUM 1.7 mg/dL (1.6-2.3); MEAN CELL VOLUME 83.8 fL (81.0-99.0); MEAN CORPUSCULAR HEMOGLOBIN 28.6 pg (27.0-31.0); MEAN CORPUSCULAR HGB CONC 34.2 g/dL (33.0-37.0); MEAN PLATELET VOLUME 8.9 fL (7.2-11.7); MONO # 0.5 K/uL (0.0-0.8); MONO % 6.8 % (0.0-10.0); NRBC % 0.1 % (0.0-2.0); RED CELL DISTRIBUTION WIDTH 14.6 % (11.5-14.5); WHITE BLOOD COUNT 8.1 K/uL (4.8-10.8)
[2016-12-12] MEDS ORDERED: Potassium Chloride 20 mEq ER Tab PO ONE (09:49)
[2016-12-12] MEDS: Aspirin 325 mg EC Tablets PO SCH (10:05)
[2016-12-12] MEDS: Pantoprazole 40 mg EC Tab PO SCH (10:05)
[2016-12-12] MEDS: Enoxaparin 40 mg Syringe SC SCH (10:06)
[2016-12-12] MEDS: ATAZANAVIR PO SCH ×2 (10:09→17:52)
[2016-12-12] MEDS: Emtricitabine-Tenofovir 200 mg-300 mg Tab PO SCH (10:10)
--- NOTE | 2016-12-12 10:22 | CP.PCM.PN ---
Subjective - Date & Time of Evaluation Date of Evaluation: 12/12/16 Time of Evaluation: 12:20 - Subjective Subjective: clinically same Objective - Vital Signs/Intake and Output Vital Signs (last 24 hours): Temp Pulse Resp BP Pulse Ox 97.5 F L 64 20 140/78 96 12/12/16 08:56 12/12/16 08:59 12/12/16 08:56 12/12/16 08:56 12/12/16 08:56 Intake and Output: 12/12/16 12/12/16 06:59 18:59 Intake Total 1100 Output Total 1200 Balance -100 - Medications Medications: Current Medications Acyclovir (Zovirax) 400 mg PO BID [facility] Last Admin: 12/12/16 10:10 Dose: 400 mg Aspirin (Ecotrin) 325 mg PO DAILY [facility] Last Admin: 12/12/16 10:05 Dose: 325 mg Atazanavir (Reyataz) 200 mg PO BID [facility] Last Admin: 12/12/16 10:09 Dose: 200 mg Emtricitabine/Tenofovir (Truvada 200 Mg-300 Mg) 1 tab PO DAILY [facility] Last Admin: 12/12/16 10:10 Dose: 1 tab Enoxaparin Sodium (Lovenox) 40 mg SC DAILY [facility] Last Admin: 12/12/16 10:06 Dose: 40 mg Meropenem 1 gm/ Sodium (Chloride) 100 mls @ 100 mls/hr IVPB Q12H [facility] Last Admin: 12/12/16 01:36 Dose: 100 mls/hr Gentamicin Sulfate/Sodium Chloride (Gentamicin 60mg/50ml Ns) 50 mls @ 50 mls/ hr IVPB Q8 [facility] Last Admin: 12/12/16 05:34 Dose: 50 mls/hr Ampicillin 2 gm/ Sodium (Chloride) 100 mls @ 50 mls/hr IVPB Q6H [facility] Last Admin: 12/12/16 06:40 Dose: 50 mls/hr Lisinopril (Zestril) 20 mg PO DAILY [facility] Last Admin: 12/12/16 10:05 Dose: 20 mg Pantoprazole Sodium (Protonix Ec Tab) 40 mg PO DAILY [facility] Last Admin: 12/12/16 10:05 Dose: 40 mg Temazepam (Restoril) 15 mg PO HS PRN PRN Reason: Agitation Last Admin: 04/10/17 22:13 Dose: 15 mg - Labs Labs: 12/12/16 06:56 12/12/16 06:56 PT 12.7 SECONDS (9.7-12.2) H 12/06/16 20:01 INR 1.1 12/06/16 20:01 APTT 33 SECONDS (21-34) 12/06/16 20:01 - Constitutional Appears: Well - Head Exam Head Exam: ATRAUMATIC, NORMAL INSPECTION, NORMOCEPHALIC - Eye Exam Eye Exam: EOMI, Normal appearance, PERRL Pupil Exam: NORMAL ACCOMODATION, PERRL - ENT Exam ENT Exam: Mucous Membranes Moist, Normal Exam - Neck Exam Neck Exam: Full ROM, Normal Inspection. absent: Lymphadenopathy - Respiratory Exam Respiratory Exam: Decreased Breath Sounds - Cardiovascular Exam Cardiovascular Exam: REGULAR RHYTHM, +S1, +S2 - GI/Abdominal Exam GI & Abdominal Exam: Soft, Diminished Bowel Sounds - Rectal Exam Rectal Exam: Deferred - Neurological Exam Neurological Exam: Alert, Awake Assessment and Plan (1) AIDS (acquired immune deficiency syndrome) Status: Acute (2) Abdominal discomfort Status: Acute (3) Abdominal pain Status: Acute (4) Abdominal pain Status: Acute (5) Abdominal pain in female Status: Acute (6) Back pain Status: Acute (7) Chest pain Status: Acute (8) Complicated UTI (urinary tract infection) Status: Acute (9) Constipation Status: Acute (10) Fever Status: Acute (11) Hypokalemia Status: Acute (12) Leg pain Status: Acute (13) Leg pain, right Status: Acute (14) Multiple drug resistant organism (MDRO) culture positive Status: Acute (15) Nausea Status: Acute (16) Prophylactic measure Status: Acute (17) Right-sided muscle weakness Status: Acute (18) UTI (urinary tract infection) Status: Acute (19) Vomiting Status: Acute (20) Chronic pain Status: Chronic (21) HIV disease Status: Chronic (22) Hepatitis C Status: Chronic - Assessment and Plan (Free Text) Plan: case discussed with consultants and staff simin mx as ordered meds as ordered
--- NOTE | 2016-12-12 12:43 | CP.PCM.PN ---
<Yousuf Garcia - Last Filed: 12/12/16 17:23> Subjective - Date & Time of Evaluation Date of Evaluation: 12/12/16 Time of Evaluation: 12:41 - Subjective Subjective: Cardiology Progress Note Dr. Mistry Patient seen and examined at the bedside. No acute distress. No acute events overnight. Nursing staff reports no issues. Patient has complaint of weakness today. The patient denies fever, chills, changes in vision/hearing, headache, chest pain, shortness of breath, abdominal pain, N/V/D/C, changes in bowel/ bladder, and extremity paresthesias. No interval change from prior examination. Objective - Vital Signs/Intake and Output Vital Signs (last 24 hours): Temp Pulse Resp BP Pulse Ox 97.5 F L 64 20 140/78 96 12/12/16 08:56 12/12/16 08:59 12/12/16 08:56 12/12/16 08:56 12/12/16 08:56 Intake and Output: 12/12/16 12/12/16 06:59 18:59 Intake Total 1100 Output Total 1200 Balance -100 - Medications Medications: Current Medications Acyclovir (Zovirax) 400 mg PO BID [facility] Last Admin: 12/12/16 10:10 Dose: 400 mg Aspirin (Ecotrin) 325 mg PO DAILY [facility] Last Admin: 12/12/16 10:05 Dose: 325 mg Atazanavir (Reyataz) 200 mg PO BID [facility] Last Admin: 12/12/16 10:09 Dose: 200 mg Emtricitabine/Tenofovir (Truvada 200 Mg-300 Mg) 1 tab PO DAILY [facility] Last Admin: 12/12/16 10:10 Dose: 1 tab Enoxaparin Sodium (Lovenox) 40 mg SC DAILY [facility] Last Admin: 12/12/16 10:06 Dose: 40 mg Meropenem 1 gm/ Sodium (Chloride) 100 mls @ 100 mls/hr IVPB Q12H [facility] Last Admin: 12/12/16 01:36 Dose: 100 mls/hr Gentamicin Sulfate/Sodium Chloride (Gentamicin 60mg/50ml Ns) 50 mls @ 50 mls/ hr IVPB Q8 [facility] Last Admin: 12/12/16 05:34 Dose: 50 mls/hr Ampicillin 2 gm/ Sodium (Chloride) 100 mls @ 50 mls/hr IVPB Q6H [facility] Last Admin: 12/12/16 11:00 Dose: 50 mls/hr Lisinopril (Zestril) 20 mg PO DAILY [facility] Last Admin: 12/12/16 10:05 Dose: 20 mg Pantoprazole Sodium (Protonix Ec Tab) 40 mg PO DAILY [facility] Last Admin: 12/12/16 10:05 Dose: 40 mg Temazepam (Restoril) 15 mg PO HS PRN PRN Reason: Agitation Last Admin: 12/11/16 22:13 Dose: 15 mg - Labs Labs: 12/12/16 06:56 12/12/16 06:56 PT 12.7 SECONDS (9.7-12.2) H 12/06/16 20:01 INR 1.1 12/06/16 20:01 APTT 33 SECONDS (21-34) 12/06/16 20:01 - Additional Findings Additional findings: - Constitutional Appears: Chronically Ill - Head Exam Head Exam: ATRAUMATIC, NORMAL INSPECTION, NORMOCEPHALIC - Eye Exam Eye Exam: EOMI, Normal appearance, PERRL - Neck Exam Neck Exam: Full ROM, Normal Inspection. absent: Lymphadenopathy - Respiratory Exam Respiratory Exam: Clear to Ausculation Bilateral, NORMAL BREATHING PATTERN. absent: Rhonchi, Wheezes - Cardiovascular Exam Cardiovascular Exam: REGULAR RHYTHM, RRR, +S1, +S2. absent: Murmur - GI/Abdominal Exam GI & Abdominal Exam: Soft, Normal Bowel Sounds. absent: Guarding, Rigid, Tenderness - Extremities Exam Extremities Exam: absent: Pedal Edema - Neurological Exam Neurological Exam: Alert, Awake, Oriented x3 - Skin Skin Exam: Dry, Intact, Normal Color, Warm Assessment and Plan - Assessment and Plan (Free Text) Assessment: This is a 61Y F with PMH HTN, HLD, multiple CVAs, COPD, HIV, Hep C admitted for 1) Chest pain - resolved 2) HTN- chronic 3) HLD- chronic 4) HIV- chronic 5) Hep C- chronic 6) Hx of multiple CVAs Plan: 1.) Chest Pain - Troponin neg x 3 - Patient hemodynamically stable at this time - Aspirin 325mg PO daily - Lisinopril 20mg PO daily - 12/06/16 EKG- NSR, normal axis, normal intervals, early R wave progression in precordial leads - Continue medical management as per primary medical team - Doppler RLE - PT evaluation 2.) Prophylaxis - GI ppx: Protonix 40mg PO daily - DVT ppx: Lovenox 40mg SC daily Case Discussed with Dr. Fidelia Garcia PGY1 <Malcolm Mistry - Last Filed: 01/16/17 03:42> Objective - Vital Signs/Intake and Output Vital Signs (last 24 hours): Temp Pulse Resp BP Pulse Ox 98.3 F 85 20 145/87 97 12/12/16 16:00 12/12/16 17:30 12/12/16 16:00 12/12/16 16:00 12/12/16 16:00 - Labs Labs: 12/12/16 06:56 12/12/16 06:56 PT 12.7 SECONDS (9.7-12.2) H 12/06/16 20:01 INR 1.1 12/06/16 20:01 APTT 33 SECONDS (21-34) 12/06/16 20:01 Attending/Attestation - Attestation I have personally seen and examined this patient.: Yes I have fully participated in the care of the patient.: Yes I have reviewed all pertinent clinical information, including history, physical exam and plan: Yes Notes (Text): 01/16/17 03:42 troponin negative x 3 outpt follow up
--- NOTE | 2016-12-12 16:19 | CP.PCM.PN ---
Subjective - Date & Time of Evaluation Date of Evaluation: 12/12/16 Time of Evaluation: 17:05 - Subjective Subjective: Medicine Progress Note- Dr. Matthew Larose's service: Patient seen and examined at bedside this AM. Patient has good appetite and is sitting up eating breakfast. She is complaining of right lower extremity pain and some abdominal pain. Denies chest pain, SOB, fevers, chills, nausea, vomiting, diarrhea. Patient with flores in place. Objective - Vital Signs/Intake and Output Vital Signs (last 24 hours): Temp Pulse Resp BP Pulse Ox 97.5 F L 64 20 140/78 96 12/12/16 08:56 12/12/16 08:59 12/12/16 08:56 12/12/16 08:56 12/12/16 08:56 Intake and Output: 12/12/16 12/12/16 06:59 18:59 Intake Total 1100 Output Total 1200 Balance -100 - Medications Medications: Current Medications Acyclovir (Zovirax) 400 mg PO BID [facility] Last Admin: 12/12/16 10:10 Dose: 400 mg Aspirin (Ecotrin) 325 mg PO DAILY [facility] Last Admin: 12/12/16 10:05 Dose: 325 mg Atazanavir (Reyataz) 200 mg PO BID [facility] Last Admin: 12/12/16 10:09 Dose: 200 mg Emtricitabine/Tenofovir (Truvada 200 Mg-300 Mg) 1 tab PO DAILY [facility] Last Admin: 12/12/16 10:10 Dose: 1 tab Enoxaparin Sodium (Lovenox) 40 mg SC DAILY [facility] Last Admin: 12/12/16 10:06 Dose: 40 mg Meropenem 1 gm/ Sodium (Chloride) 100 mls @ 100 mls/hr IVPB Q12H [facility] Last Admin: 12/12/16 13:06 Dose: 100 mls/hr Gentamicin Sulfate/Sodium Chloride (Gentamicin 60mg/50ml Ns) 50 mls @ 50 mls/ hr IVPB Q8 [facility] Last Admin: 12/12/16 13:05 Dose: 50 mls/hr Ampicillin 2 gm/ Sodium (Chloride) 100 mls @ 50 mls/hr IVPB Q6H [facility] Last Admin: 12/12/16 11:00 Dose: 50 mls/hr Lisinopril (Zestril) 20 mg PO DAILY [facility] Last Admin: 12/12/16 10:05 Dose: 20 mg Pantoprazole Sodium (Protonix Ec Tab) 40 mg PO DAILY [facility] Last Admin: 12/12/16 10:05 Dose: 40 mg Temazepam (Restoril) 15 mg PO HS PRN PRN Reason: Agitation Last Admin: 12/11/16 22:13 Dose: 15 mg - Labs Labs: 12/12/16 06:56 12/12/16 06:56 PT 12.7 SECONDS (9.7-12.2) H 12/06/16 20:01 INR 1.1 12/06/16 20:01 APTT 33 SECONDS (21-34) 12/06/16 20:01 - Constitutional Appears: No Acute Distress - Head Exam Head Exam: NORMAL INSPECTION, NORMOCEPHALIC - Eye Exam Eye Exam: EOMI, Normal appearance - ENT Exam ENT Exam: Mucous Membranes Moist - Respiratory Exam Respiratory Exam: Clear to Ausculation Bilateral, NORMAL BREATHING PATTERN - Cardiovascular Exam Cardiovascular Exam: REGULAR RHYTHM, +S1, +S2, Murmur - GI/Abdominal Exam GI & Abdominal Exam: Soft. absent: Distended, Tenderness - Extremities Exam Extremities Exam: Tenderness (over lower extremities). absent: Full ROM (right sided residual weakness) - Neurological Exam Neurological Exam: Alert, Awake - Psychiatric Exam Psychiatric exam: Flat Affect, Normal Mood - Skin Skin Exam: Dry, Warm Assessment and Plan - Assessment and Plan (Free Text) Assessment: (1) Chest pain Assessment & Plan: Patient admitted for chest pain. cardiac enzymes have been negative Dr. Callahan consulted for cardiology. D/C tele, see consult note for Dr. Callahan Status: Acute (2) AIDS (acquired immune deficiency syndrome) Assessment & Plan: Dr. Mondragon consulted. continue her home antiviral medication. Status: Acute (3) Complicated UTI (urinary tract infection) Assessment & Plan: Patient has a history of reccurent UTI that were ESBL gram negative. Dr. Mondragon consulted, help appreciated. Dr. Márquez Urology consult, help appreciated. Flores inserted and volume of output measured as per Dr. Márquez. Continue IV antibiotics per Dr. Mondragon. Day 6 or 7 of IV Meropenem and Day 5 out of 7 for IV Ampicillin. Status: Acute (4) Hepatitis C Assessment & Plan: Patient has elevated LFTs, on chart review she tested positive for Hep C about 2 years ago. Have consulted Dr. Cruz GI. Patient will follow up Dr. Cruz as outpatient. US shows hepatic steatosis, follow up Hep C viral count and genotype. Follow up GI consult. Status: Chronic (5) Right-sided muscle weakness Assessment & Plan: Residual from old CVA. Physical therapy and and occupational therapy ordered. Status: Acute (6) Prophylactic measure Assessment & Plan: Protonix and Lovenox ordered for prophylaxis. Status: Acute Discharge planning as per Dr. Matthew Larose.
[2016-12-12 16:53] VITALS: BP 145/87; TEMP 98.3; O2SAT 97
[2016-12-12 21:53] VITALS: PULSE 85
[2016-12-12 22:54] LABS: HEPATITIS C VIRAL RNA QUAL Detected (())
== END 2016-12-12 19:30 | DRG 689 ==
LOC: C.ER 18:55 → C.6T 21:46 → OBSVTOIN 12-08 16:33
PROVIDERS: ADMIT Internal Medicine Nephrology; ATTEND Internal Medicine Nephrology
DX: N39.0 Urinary tract infection, site not specified (principal); B20 Human immunodeficiency virus [HIV] disease; I69.951 Hemiplegia and hemiparesis following unspecified cerebrovascular disease affecting right dominant side; I10 Essential (primary) hypertension; E11.9 Type 2 diabetes mellitus without complications; B96.20 Unspecified Escherichia coli [E. coli] as the cause of diseases classified elsewhere; R07.9 Chest pain, unspecified; E78.5 Hyperlipidemia, unspecified; M19.90 Unspecified osteoarthritis, unspecified site; M81.0 Age-related osteoporosis without current pathological fracture; J44.9 Chronic obstructive pulmonary disease, unspecified; Z87.891 Personal history of nicotine dependence; E78.00 Pure hypercholesterolemia, unspecified; Z90.49 Acquired absence of other specified parts of digestive tract; B19.20 Unspecified viral hepatitis C without hepatic coma; M62.81 Muscle weakness (generalized)

== ENCOUNTER 2018-02-16 15:40 | Emergency (ER) | payer MEDICARE, MEDICAID ==
[2018-02-16 15:41] VITALS: BMI 28.3
[2018-02-16 15:45] VITALS: RESP 18
[2018-02-16] MEDS ORDERED: Oxycodone/Acetaminophen 5/325 mg Tab PO STA (16:22)
[2018-02-16] MEDS ORDERED: Oxycodone/Acetaminophen 5/325 mg Tab ONE (16:29)
--- NOTE | 2018-02-16 17:58 | C.PDOC ---
History Of Present Illness Pt c/o b/l LE pain. Denies injury. Time Seen by Provider: 02/16/18 15:49 Chief Complaint (Nursing): Pain, Chronic History Per: Patient, Family (Son) Onset/Duration Of Symptoms: Days (chronic) Current Symptoms Are (Timing): Still Present Severity: Moderate Location: b/l Lower extremities Quality: Pain Reports Recent Trauma: Denies Additional History Per: Care Home, Prior Records Past Medical History Reviewed: Historical Data, Nursing Documentation, Vital Signs Vital Signs: Last Vital Signs Temp 98 F 02/16/18 15:44 Pulse 66 02/16/18 15:44 Resp 18 02/16/18 15:44 BP 162/90 H 02/16/18 15:44 Pulse Ox 98 02/16/18 15:44 - Medical History PMH: Arthritis, Bronchitis, COPD, CVA (Multiple; with residual right sided weakness), Depression, Diabetes, Gastritis, Hepatitis (C), HIV, HTN, Hypercholesterolemia, Hyperlipidemia, Osteoporosis, Rheumatoid Arthritis, Chronic Pain Surgical History: Appendectomy, Cholecystectomy - [facility] Procedures OCCUPATIONAL THERAPY (11/01/13) PHYSICAL THERAPY NEC (11/01/13) RECREATIONAL THERAPY (11/01/13) Family History: States: Unknown Family Hx - Social History Hx Tobacco Use: No Hx Alcohol Use: No Hx Substance Use: No - Immunization History Hx Tetanus Toxoid Vaccination: No Hx Influenza Vaccination: Yes Hx Pneumococcal Vaccination: No Review Of Systems Constitutional: Negative for: Fever Cardiovascular: Negative for: Chest Pain Respiratory: Negative for: Shortness of Breath, Hemoptysis Gastrointestinal: Negative for: Vomiting, Abdominal Pain Musculoskeletal: Positive for: Leg Pain. Negative for: Back Pain Neurological: Positive for: Weakness (right side, old) Physical Exam - Physical Exam Appears: No Acute Distress, Chronically Ill Skin: Normal Color, Warm, Dry Head: Atraumatic, Normacephalic Eye(s): bilateral: PERRL Neck: Normal ROM, Supple Cardiovascular: Rhythm Regular Respiratory: Normal Breath Sounds, No Accessory Muscle Use Gastrointestinal/Abdominal: Soft, No Tenderness Extremity: No Deformity Neurological/Psych: Oriented x3, No Normal Motor (weakness of right upper and right lower extremities) ED Course And Treatment O2 Sat by Pulse Oximetry: 98 Pulse Ox Interpretation: Normal - CT Scan/US b/l LE duplex Other Rad Studies (CT/US): Radiology Report Reviewed CT/US Interpretation: Negative for DVTs Reassessment Condition: Improved Disposition Counseled Patient/Family Regarding: Studies Performed, Diagnosis, Need For Followup, Rx Given - Disposition Referrals: Alan Conteh MD [Staff Provider] - Disposition: TRANSF TO SNF Disposition Time: 17:59 Condition: STABLE Additional Instructions: Follow up with your doctor for further evaluation and treatment. Return to the ER if you develop chest pain, shortness of breath, redness, swelling, worsening of symptoms or if you have any other concerns. Prescriptions: Acetaminophen/Hydrocodone Bi [Vicodin 300 mg-5 mg] 1 tab PO Q4 PRN #30 tab PRN Reason: Pain, Severe (8-10) Instructions: Chronic Pain (DC) - Clinical Impression Clinical Impression: Lower extremity pain, bilateral
--- NOTE | 2018-02-16 17:58 | VASCLAB ---
PROCEDURE: Lower Extremity Venous Duplex Exam. HISTORY: Pain, r/o DVT B/L LE Edema PRIORS: None. TECHNIQUE: Bilateral common femoral, femoral, popliteal and posterior tibial, peroneal and great saphenous veins were evaluated. Flow was assessed with color Doppler, compressibility, assessment of phasic flow and augmentation response. Report prepared by Zac Benites RVT FINDINGS: RIGHT: 1. Common Femoral Vein: 1.1. Compressibility - Fully compressible: Thrombus - None : Flow - Phasic: Augmentation -Normal: Reflux - . 2. Femoral Vein: 2.1. Compressibility - Fully compressible: Thrombus - None : Flow - Phasic: Augmentation -Normal: Reflux - . 3. Popliteal Vein: 3.1. Compressibility - Fully compressible: Thrombus - None : Flow - Phasic: Augmentation -Normal: Reflux - . 4. Posterior Tibial Vein: 4.1. Compressibility - Fully compressible: Thrombus - None: Flow - : Augmentation -: Reflux - . 5. Peroneal Vein: 5.1. Compressibility - Fully compressible: Thrombus - None: Flow - : Augmentation -: Reflux - . 6. Great Saphenous Vein: 6.1. Compressibility - Fully compressible: Thrombus - None: Flow - Phasic: Augmentation - l: Reflux - . LEFT: 1. Common Femoral Vein: 1.1. Compressibility - Fully compressible: Thrombus - None: Flow - Phasic: Augmentation -Normal: Reflux - . 2. Femoral Vein: 2.1. Compressibility - Fully compressible: Thrombus - None: Flow - Phasic: Augmentation -Normal: Reflux - . 3. Popliteal Vein: 3.1. Compressibility - Fully compressible: Thrombus - None : Flow - Phasic: Augmentation -Normal: Reflux - . 4. Posterior Tibial Vein: 4.1. Compressibility - Fully compressible: Thrombus - None: Flow - : Augmentation -: Reflux - . 5. Peroneal Vein: 5.1. Compressibility - Fully compressible: Thrombus - None: Flow - : Augmentation -: Reflux - . 6. Great Saphenous Vein: 6.1. Compressibility - Fully compressible: Thrombus - None: Flow - Phasic: Augmentation - : Reflux - . OTHER FINDINGS: Right: None significant. Left: None significant. IMPRESSION: Right: No evidence of deep or superficial vein thrombosis of the right lower extremity. Left: No evidence of deep or superficial vein thrombosis of the left lower extremity.
[2018-02-16 18:15] VITALS: BP 126/76; PULSE 68; TEMP 98; O2SAT 100
== END 2018-02-16 19:15 ==
LOC: C.ER 15:40
DX: M79.662 Pain in left lower leg (principal); M79.661 Pain in right lower leg

== ENCOUNTER 2018-04-07 12:56 | Emergency (ER) | payer MEDICARE, MEDICAID ==
[2018-04-07 12:58] VITALS: BMI 28.3
[2018-04-07 13:02] VITALS: RESP 18
[2018-04-07 13:42] LABS: SQUAMOUS EPITHIAL 1 /hpf (0-5); URINE BACTERIA OCC (<OCC); URINE BILIRUBIN NEGATIVE (NEGATIVE); URINE BLOOD NEGATIVE (NEGATIVE); URINE CLARITY Hazy (Clear); URINE COLOR Yellow (YELLOW); URINE GLUCOSE (UA) NORMAL (Normal); URINE LEUKOCYTE ESTERASE 2+ Leu/uL (Negative); URINE PROTEIN NEGATIVE (NEGATIVE)
[2018-04-07] MEDS ORDERED: Sodium Chloride 0.9% 500 ML IV ONE ×2 (13:46→13:53)
--- NOTE | 2018-04-07 13:51 | C.PDOC ---
History Of Present Illness 63 year old female with a history of multiple medical problems, such as CVAs, depression, diabetes, Hepatitis C, HIV, HTN, HLD, presents to the emergency department status-post being discharged from a retirement 5 days ago. According to EMS, they were called by her son this morning stating "things are not well", as the patient complains of abdominal pain associated with mild vomiting. She denies diarrhea, fever, and dysuria. History obtained from her son Fred. He claims she has not had a bowel movement in 4 days. He states that they require assistance at home and will be speaking to a possible secy tomorrow. Time Seen by Provider: 04/07/18 13:34 Chief Complaint (Nursing): Abdominal Pain History Per: Patient History/Exam Limitations: no limitations Onset/Duration Of Symptoms: Days Current Symptoms Are (Timing): Still Present Location Of Pain/Discomfort: Other (abdominal pain) Quality Of Discomfort: "Pain" Associated Symptoms: Vomiting Additional History Per: EMS Past Medical History Reviewed: Historical Data, Nursing Documentation, Vital Signs Vital Signs: Last Vital Signs Temp 97.4 F L 04/07/18 13:01 Pulse 65 04/07/18 13:01 Resp 18 04/07/18 13:01 BP 146/83 04/07/18 13:01 Pulse Ox 95 04/07/18 16:00 - Medical History PMH: Arthritis, Bronchitis, COPD, CVA (Multiple; with residual right sided weakness), Depression, Diabetes, Gastritis, Hepatitis (C), HIV, HTN, Hypercholesterolemia, Hyperlipidemia, Osteoporosis, Rheumatoid Arthritis, Chronic Pain Denies: Chronic Kidney Disease Surgical History: Appendectomy, Cholecystectomy - [facility] Procedures OCCUPATIONAL THERAPY (11/01/13) PHYSICAL THERAPY NEC (11/01/13) RECREATIONAL THERAPY (11/01/13) Family History: States: No Known Family Hx - Social History Hx Tobacco Use: No Hx Alcohol Use: No Hx Substance Use: No - Immunization History Hx Tetanus Toxoid Vaccination: No Hx Influenza Vaccination: Yes Hx Pneumococcal Vaccination: No Review Of Systems Constitutional: Positive for: Weakness. Negative for: Fever Cardiovascular: Negative for: Chest Pain, Orthopnea Respiratory: Negative for: Cough, Shortness of Breath Gastrointestinal: Positive for: Vomiting, Abdominal Pain Genitourinary: Negative for: Dysuria Physical Exam - Physical Exam Appears: Non-toxic, No Acute Distress, Other (infantile) Skin: Warm, Dry Head: Atraumatic, Normacephalic Eye(s): bilateral: Normal Inspection Nose: Normal Oral Mucosa: Moist Throat: Normal, No Erythema, No Exudate Neck: Normal, Supple Chest: Symmetrical, No Tenderness Cardiovascular: Rhythm Regular, No Murmur Respiratory: Normal Breath Sounds, No Rales, No Rhonchi, No Wheezing Gastrointestinal/Abdominal: Soft, Tenderness (mild suprapubic tenderness), No Guarding, No Rebound Neurological/Psych: Normal Speech, Normal Cognition, Other (right-sided paralysis) ED Course And Treatment - Laboratory Results Result Diagrams: 04/07/18 14:25 04/07/18 14:25 Lab Interpretation: Abnormal (Urine WBC 21 with leukocyte esterase. Culture obtained) O2 Sat by Pulse Oximetry: 95 (RA) Pulse Ox Interpretation: Normal - Other Rad Abdominal flat plate X-Ray: Interpreted by Me Interpretation: NO evidence of bowel obstruction or fecal impaction. Progress Note: Plan: CMP. Lipase. CBC. NaCl IV Fluids. Urine Culture. Urinalysis Reevaluation Time: 15:57 Reassessment Condition: Improved Disposition Counseled Patient/Family Regarding: Studies Performed, Diagnosis, Need For Followup, Rx Given - Disposition Referrals: Alan Conteh MD [Staff Provider] - Disposition: HOME/ ROUTINE Disposition Time: 15:57 Condition: STABLE Prescriptions: Nitrofurantoin Macrocrystals [Macrobid] 1 cap PO BID #14 cap Instructions: Urinary Tract Infections in Adults Forms: [facility] ([place] Citizen) - Clinical Impression Clinical Impression: UTI (urinary tract infection) - Scribe Statement The provider has reviewed the documentation as recorded by the Scribe (Cresencio Vivar) Provider Attestation: All medical record entries made by the Scribe were at my direction and personally dictated by me. I have reviewed the chart and agree that the record accurately reflects my personal performance of the history, physical exam, medical decision making, and the department course for this patient. I have also personally directed, reviewed, and agree with the discharge instructions and disposition.
[2018-04-07 14:32] LABS: BASO # 0.1 K/uL (0.0-0.2); BASO % 0.9 % (0.0-2.0); EOS # 0.2 K/uL (0.0-0.7); EOS % 2.6 % (0.0-4.0); HEMOGLOBIN 11.8 g/dL (11.0-16.0); LYMPH # 2.4 K/uL (1.0-4.3); LYMPH % 37.3 % (20.0-40.0); MEAN CORPUSCULAR HEMOGLOBIN 30.9 pg (27.0-31.0); MEAN CORPUSCULAR HGB CONC 34.8 g/dL (33.0-37.0); MEAN PLATELET VOLUME 8.8 fL (7.2-11.7); MONO # 0.4 K/uL (0.0-0.8); MONO % 6.6 % (0.0-10.0); NEUT # 3.3 K/uL (1.8-7.0); NEUT % 52.6 % (50.0-75.0); NRBC % 0.1 % (0.0-2.0); RBC 3.83 Mil/uL (3.80-5.20); RED CELL DISTRIBUTION WIDTH 13.5 % (11.5-14.5); WHITE BLOOD COUNT 6.3 K/uL (4.8-10.8)
[2018-04-07 14:34] LABS: MEAN CELL VOLUME 88.9 fL (81.0-99.0)
[2018-04-07 14:44] LABS: ALB/GLOB RATIO 0.8 (1.0-2.1); ALBUMIN 3.7 g/dL (3.5-5.0); ALT/SGPT 59 U/L (9-52); AST/SGOT 62 U/L (14-36); BLOOD UREA NITROGEN 18 mg/dL (7-17); CALCIUM 8.5 mg/dl (8.6-10.4); GFR AFRICAN-AMERICAN > 60; GFR NON-AFRICAN AMERICAN > 60; LIPASE 132 U/L (23-300)
[2018-04-07] MEDS ORDERED: cefTRIAXone IV 1 gm in Dextros 50 ML IVPB ONE ×2 (15:58→16:08)
[2018-04-07 16:33] VITALS: BP 142/78; PULSE 66; TEMP 98.1; O2SAT 97
--- NOTE | 2018-04-07 17:09 | RAD ---
Date of service: 04/07/2018 HISTORY: r/o fecal impaction COMPARISON: No prior. FINDINGS: BOWEL: Nonobstructive bowel gas pattern appreciated. Relatively prominent fecal loading is seen throughout the large bowel suggestive of constipation. Impaction is not apparent at this time. No abnormal intra-abdominal calcifications or large free intrarenal gas collection identified peer BONES: Normal. OTHER FINDINGS: None. IMPRESSION: Prominent retained fecal material in the colon suspicious for possible constipation. No bowel obstruction identified. Please see discussion above.
== END 2018-04-07 16:58 | disposition home or self-care (01) ==
LOC: C.ER 12:56
DX: N39.0 Urinary tract infection, site not specified (principal); I10 Essential (primary) hypertension; E11.9 Type 2 diabetes mellitus without complications; E78.00 Pure hypercholesterolemia, unspecified; B19.20 Unspecified viral hepatitis C without hepatic coma; Z86.73 Personal history of transient ischemic attack (TIA), and cerebral infarction without residual deficits
CPT/HCPCS: 74018; 80053; 81001; 83690; 85025; 96360; 99284; J0696; J7040

== ENCOUNTER 2018-04-16 21:28 | Emergency (ER) | payer MEDICARE, MEDICAID ==
[2018-04-16 21:28] VITALS: BMI 28.3
[2018-04-17 00:39] LABS: BASO % 0.6 % (0.0-2.0); EOS # 0.2 K/uL (0.0-0.7); EOS % 2.1 % (0.0-4.0); LYMPH # 2.4 K/uL (1.0-4.3); LYMPH % 33.2 % (20.0-40.0); MEAN CELL VOLUME 90.2 fL (81.0-99.0); MEAN CORPUSCULAR HEMOGLOBIN 31.5 pg (27.0-31.0); MEAN CORPUSCULAR HGB CONC 34.9 g/dL (33.0-37.0); MEAN PLATELET VOLUME 8.6 fL (7.2-11.7); MONO # 0.5 K/uL (0.0-0.8); MONO % 6.6 % (0.0-10.0); NEUT # 4.1 K/uL (1.8-7.0); NEUT % 57.5 % (50.0-75.0); NRBC % 0.1 % (0.0-2.0); RBC 3.81 Mil/uL (3.80-5.20); RED CELL DISTRIBUTION WIDTH 13.6 % (11.5-14.5); WHITE BLOOD COUNT 7.2 K/uL (4.8-10.8)
--- NOTE | 2018-04-17 00:55 | C.PDOC ---
Time Seen by Provider: 04/16/18 22:13 Chief Complaint (Nursing): Abdominal Pain History Per: Patient Onset/Duration Of Symptoms: Days (2) Current Symptoms Are (Timing): Still Present Severity: Moderate Location Of Pain/Discomfort: Diffuse Alleviating Factors: None Additional History Per: Prior Records Past Medical History Reviewed: Historical Data, Nursing Documentation, Vital Signs Vital Signs: Last Vital Signs Temp 98.1 F 04/16/18 21:42 Pulse 74 04/16/18 21:42 Resp 20 04/16/18 21:42 BP 165/74 H 04/16/18 21:42 Pulse Ox 99 04/17/18 00:55 - Medical History PMH: Arthritis, Bronchitis, COPD, CVA (Multiple; with residual right sided weakness), Depression, Diabetes, Gastritis, Hepatitis (C), HIV, HTN, Hypercholesterolemia, Hyperlipidemia, Osteoporosis, Rheumatoid Arthritis, Chronic Pain Surgical History: Appendectomy, Cholecystectomy - [facility] Procedures OCCUPATIONAL THERAPY (11/01/13) PHYSICAL THERAPY NEC (11/01/13) RECREATIONAL THERAPY (11/01/13) Family History: States: Unknown Family Hx - Social History Hx Tobacco Use: No Hx Alcohol Use: No Hx Substance Use: No - Immunization History Hx Tetanus Toxoid Vaccination: No Hx Influenza Vaccination: Yes Hx Pneumococcal Vaccination: No Review Of Systems Except As Marked, All Systems Reviewed And Found Negative. Constitutional: Negative for: Fever Eyes: Positive for: Vision Change Cardiovascular: Negative for: Chest Pain Respiratory: Negative for: Cough, Shortness of Breath Gastrointestinal: Positive for: Abdominal Pain. Negative for: Vomiting, Diarrhea Musculoskeletal: Negative for: Neck Pain Neurological: Positive for: Weakness (right side, old), Headache. Negative for : Seizures Physical Exam - Physical Exam Appears: No Acute Distress, Chronically Ill Skin: Normal Color, Warm, Dry Head: Atraumatic Eye(s): bilateral: EOMI, right: PERRL, left: Abnormal Pupil (Post surgical?) Neck: Normal ROM, Supple Cardiovascular: Rhythm Regular Respiratory: Normal Breath Sounds, No Accessory Muscle Use Gastrointestinal/Abdominal: Soft, Tenderness (nonspecific), No Guarding, No Rebound Neurological/Psych: Oriented x3, No Normal Motor (right sided weakness due to old CVA) ED Course And Treatment - Laboratory Results Result Diagrams: 04/16/18 22:26 ECG: Interpreted By Me, Viewed By Me ECG Rhythm: Sinus Rhythm ECG Interpretation: No Acute Changes Rate From EC O2 Sat by Pulse Oximetry: 99 Pulse Ox Interpretation: Normal Disposition - Disposition Disposition Time: 01:00 Condition: FAIR - Clinical Impression Clinical Impression: Abdominal pain, Headache Physician Patient Turnover Patient Signed Over To: Carl Barrett Handoff Comments: to f/up urine and CT results, then reassess/dispo pt.
[2018-04-17 01:34] LABS: ALB/GLOB RATIO 0.8 (1.0-2.1); ALBUMIN 3.8 g/dL (3.5-5.0); ALT/SGPT 61 U/L (9-52); AST/SGOT 58 U/L (14-36); BLOOD UREA NITROGEN 18 mg/dL (7-17); CALCIUM 8.7 mg/dl (8.6-10.4); GFR AFRICAN-AMERICAN > 60; GFR NON-AFRICAN AMERICAN > 60; LIPASE 193 U/L (23-300)
[2018-04-17 07:18] VITALS: RESP 20
--- NOTE | 2018-04-17 08:07 | CT ---
Date of service: 04/17/2018 PROCEDURE: CT HEAD WITHOUT CONTRAST. HISTORY: Headache, blurry vision COMPARISON: None available. TECHNIQUE: Axial computed tomography images were obtained through the head/brain without intravenous contrast. Radiation dose: Total exam DLP = 865 mGy-cm. This CT exam was performed using one or more of the following dose reduction techniques: Automated exposure control, adjustment of the mA and/or kV according to patient size, and/or use of iterative reconstruction technique. FINDINGS: HEMORRHAGE: No intracranial hemorrhage. BRAIN: Cerebral atrophy with compensatory dilatation of the ventricles.Scattered focal lucencies in the subcortical and periventricular white matter suggestive for chronic microvascular ischemic change. Encephalomalacia in the region of the left thalamus and basal ganglia. VENTRICLES: Unremarkable. No hydrocephalus. CALVARIUM: Unremarkable. PARANASAL SINUSES: Air-fluid level in the right maxillary sinus. MASTOID AIR CELLS: Move Unremarkable as visualized. No inflammatory changes. OTHER FINDINGS: None. IMPRESSION: Cerebral atrophy with compensatory dilatation of the ventricles. Chronic microvascular ischemic change. Encephalomalacia in the region of the left thalamus and basal ganglia. Air-fluid level in the right maxillary sinus. If focal neurologic deficit persists, consider correlation with MRI. These findings were preliminarily reported at 2:14 a.m. on 04/17/[address] Avni Jones from [employer].
[2018-04-17 09:10] VITALS: TEMP 98.6; O2SAT 98
--- NOTE | 2018-04-17 09:44 | CT ---
Date of service: 04/17/2018 PROCEDURE: CT Abdomen and Pelvis without intravenous contrast HISTORY: Abdominal pain COMPARISON: None. TECHNIQUE: Multiple contiguous axial images were performed through the abdomen and pelvis without the use of intravenous contrast. Subsequently, sagittal and coronal reformatted images were obtained. Radiation dose: Total exam DLP = 1010 mGy-cm. This CT exam was performed using one or more of the following dose reduction techniques: Automated exposure control, adjustment of the mA and/or kV according to patient size, and/or use of iterative reconstruction technique. FINDINGS: LOWER THORAX: Moderate hiatal hernia. Two small nodular densities noted at the right lung base/diaphragmatic hernia on series 3, images 26 and 27 measuring 4 and 5 millimeters respectively which may represent small lymph nodes versus nodules. LIVER: Unremarkable. No gross lesion or ductal dilatation. GALLBLADDER AND BILE DUCTS: Cholecystectomy. PANCREAS: Unremarkable. No gross lesion or ductal dilatation. SPLEEN: Unremarkable. ADRENALS: Unremarkable. No mass. KIDNEYS AND URETERS: Unremarkable. No hydronephrosis. No solid mass. VASCULATURE: Unremarkable. No aortic aneurysm. BOWEL: Unremarkable. No obstruction. No gross mural thickening. APPENDIX: No findings to suggest acute appendicitis. PERITONEUM: Unremarkable. No free fluid. No free air. LYMPH NODES: Unremarkable. No enlarged lymph nodes. BLADDER: Unremarkable. REPRODUCTIVE: Unremarkable. BONES: No acute fracture. OTHER FINDINGS: None. IMPRESSION: Negative acute. Moderate hiatal hernia. These findings were preliminarily reported at 2:27 a.m. on 04/17/[address] Avni Jones from [employer].
[2018-04-17 11:15] VITALS: BP 121/73; PULSE 60
--- NOTE | 2018-04-17 12:41 | CARD ---
APPROVED REPORT Date of service: 04/16/2018 EKG Measurement Heart [id number] <Conclusion> Normal sinus rhythm Normal ECG
== END 2018-04-17 11:27 | disposition home or self-care (01) ==
LOC: C.ER 21:28
DX: R10.9 Unspecified abdominal pain (principal); R51 Headache
CPT/HCPCS: 70450; 74176; 80053; 83690; 85025; 93005; 96374; 99285; J1885

== ENCOUNTER 2018-05-02 18:01 | Emergency (ER) | payer MEDICARE, MEDICAID ==
[2018-05-02 18:20] VITALS: BMI 30.9
[2018-05-02 18:32] VITALS: O2SAT 97
--- NOTE | 2018-05-02 19:22 | C.PDOC ---
History Of Present Illness 63 y/o female presents to the ER complaining vague abdominal discomfort. Patient denies having nausea, vomiting, dysuria, and hematuria. Of note, patient has a history of many prior evaluations in [facility] ER and [facility] ER for the same complaint. Time Seen by Provider: 05/02/18 18:43 Chief Complaint (Nursing): Abdominal Pain History Per: Patient History/Exam Limitations: no limitations Onset/Duration Of Symptoms: Days Current Symptoms Are (Timing): Still Present Severity: Moderate Past Medical History Reviewed: Historical Data, Nursing Documentation, Vital Signs Vital Signs: Last Vital Signs Temp 97.9 F 05/02/18 18:21 Pulse 58 L 05/02/18 18:21 Resp 18 05/02/18 18:21 BP 132/79 05/02/18 18:21 Pulse Ox 97 05/02/18 19:32 - Medical History PMH: Arthritis, Bronchitis, COPD, CVA (Multiple; with residual right sided weakness), Depression, Diabetes, Gastritis, Hepatitis (C), HIV, HTN, Hypercholesterolemia, Hyperlipidemia, Osteoporosis, Rheumatoid Arthritis, Chronic Pain Denies: Chronic Kidney Disease Surgical History: Appendectomy, Cholecystectomy - [facility] Procedures OCCUPATIONAL THERAPY (11/01/13) PHYSICAL THERAPY NEC (11/01/13) RECREATIONAL THERAPY (11/01/13) Family History: States: No Known Family Hx - Social History Hx Tobacco Use: No Hx Alcohol Use: No Hx Substance Use: No - Immunization History Hx Tetanus Toxoid Vaccination: No Hx Influenza Vaccination: Yes Hx Pneumococcal Vaccination: No Review Of Systems Except As Marked, All Systems Reviewed And Found Negative. Constitutional: Negative for: Fever, Chills Gastrointestinal: Positive for: Abdominal Pain. Negative for: Nausea, Vomiting , Diarrhea Genitourinary: Negative for: Dysuria Physical Exam - Physical Exam Appears: Non-toxic, No Acute Distress, Other (bizarre affect) Skin: Normal Color, Warm, Dry Head: Atraumatic, Normacephalic Eye(s): bilateral: Normal Inspection Nose: Normal Oral Mucosa: Moist Neck: Supple Chest: Symmetrical Cardiovascular: Rhythm Regular Respiratory: Normal Breath Sounds, No Rales, No Rhonchi, No Wheezing Gastrointestinal/Abdominal: Normal Exam, Soft, No Tenderness, No Guarding, No Rebound Neurological/Psych: Oriented x3, Normal Speech ED Course And Treatment O2 Sat by Pulse Oximetry: 97 (RA) Pulse Ox Interpretation: Normal - Radiology CXR: Interpreted by Me CXR Interpretation: Yes: No Acute Disease - Other Rad abd x 2 X-Ray: Interpreted by Me (+ increased stool/gas pattern) Medical Decision Making Medical Decision Making: abd films +FOS pt refuses further w/u many prior eval for same. ? underlying psych as pt with poor insight. pt prefers empiric laxative tx and opt f/u. Disposition Doctor Will See Patient In The: Office Counseled Patient/Family Regarding: Studies Performed, Diagnosis - Disposition Referrals: Reddy Oreilly MD [Staff Provider] - Disposition: HOME/ ROUTINE Disposition Time: 19:22 Condition: GOOD Additional Instructions: drink a laxative now (an entire bottle of Mag Citrate) and re-evaluate your abdominal discomfort after using the bathoom 2-3 times. diet and exercise changes as able outpatient follow-up w Dr. Oreilly. Instructions: Constipation, Adult (DC), Stomach Ache and Stomach Upset Forms: [employer] ([place]ans[place]) - Clinical Impression Clinical Impression: Generalized colicky abdominal pain - Scribe Statement The provider has reviewed the documentation as recorded by the Scribe Iman Everett Provider Attestation: All medical record entries made by the Scribe were at my direction and personally dictated by me. I have reviewed the chart and agree that the record accurately reflects my personal performance of the history, physical exam, medical decision making, and the department course for this patient. I have also personally directed, reviewed, and agree with the discharge instructions and disposition.
[2018-05-02 22:34] VITALS: BP 120/70; PULSE 70; RESP 14; TEMP 97.5
--- NOTE | 2018-05-03 10:38 | RAD ---
Date of service: 05/02/2018 PROCEDURE: Radiographs of the chest and abdomen (obstructive series) HISTORY: abd pain COMPARISON: CT scan of the abdomen pelvis dated 04/17/2018; chest radiograph dated 12/06/2016. TECHNIQUE: AP radiograph of the chest, with upright and supine radiographs of the abdomen. FINDINGS: CHEST: Lungs: Clear. Cardiovascular: Atherosclerotic aortic calcifications. Cardiomediastinal silhouette stably enlarged. Pleura: No pleural fluid. No pneumothorax. Other findings: None. ABDOMEN AND PELVIS: Bowel: Unremarkable bowel gas pattern. No evidence of mechanical obstruction. Free air: None. Bones: Degenerative changes. Other findings: Right upper quadrant surgical clips. IMPRESSION: Unremarkable radiographs of chest and abdomen. No evidence of mechanical bowel obstruction.
== END 2018-05-02 22:34 | disposition home or self-care (01) ==
LOC: C.ER 18:01
DX: R10.84 Generalized abdominal pain (principal)

== ENCOUNTER 2018-06-18 16:12 | Emergency (ER) | payer MEDICAID, MEDICARE, OTHER ==
[2018-06-18 16:13] VITALS: BMI 30.9
[2018-06-18 16:25] VITALS: O2SAT 99
[2018-06-18 16:37] VITALS: RESP 20
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
[2018-06-18 18:16] VITALS: BP 125/79; PULSE 64; TEMP 97.5
== END 2018-06-18 18:16 | disposition home or self-care (01) ==
LOC: C.ER 16:12
DX: T76.21XA Adult sexual abuse, suspected, initial encounter (principal)

== ENCOUNTER 2018-09-25 15:56 | Emergency (ER) | payer MEDICARE, MEDICAID ==
[2018-09-25 15:56] VITALS: BMI 30.9
[2018-09-25] MEDS ORDERED: Sodium Chloride 0.9% 1,000 ML IV ONE (17:26)
[2018-09-25 18:10] LABS: BASO # 0.1 K/uL (0.0-0.2); BASO % 1.2 % (0.0-2.0); EOS # 0.1 K/uL (0.0-0.7); EOS % 2.3 % (0.0-4.0); HEMOGLOBIN 11.8 g/dL (11.0-16.0); LYMPH # 2.4 K/uL (1.0-4.3); MEAN CORPUSCULAR HEMOGLOBIN 29.6 pg (27.0-31.0); MEAN CORPUSCULAR HGB CONC 34.1 g/dL (33.0-37.0); MEAN PLATELET VOLUME 8.3 fL (7.2-11.7); MONO # 0.9 K/uL (0.0-0.8); MONO % 15.9 % (0.0-10.0); NEUT # 2.2 K/uL (1.8-7.0); NEUT % 38.6 % (50.0-75.0); NRBC % 0.2 % (0.0-2.0); RBC 3.98 Mil/uL (3.80-5.20); RED CELL DISTRIBUTION WIDTH 14.2 % (11.5-14.5); WHITE BLOOD COUNT 5.8 K/uL (4.8-10.8)
[2018-09-25 18:15] LABS: MEAN CELL VOLUME 86.8 fL (81.0-99.0)
[2018-09-25 18:22] LABS: ALB/GLOB RATIO 0.9 (1.0-2.1); ALT/SGPT 25 U/L (9-52); AST/SGOT 40 U/L (14-36); BLOOD UREA NITROGEN 16 mg/dL (7-17); CALCIUM 8.7 mg/dl (8.6-10.4); GFR NON-AFRICAN AMERICAN > 60
--- NOTE | 2018-09-25 18:23 | C.PDOC ---
History Of Present Illness 63 y/o female with a PMHx of HIV, CVA, and resulting right-sided paresis, presents from care home for evaluation of bodyaches since yesterday. Otherwise patient denies any abdominal pain, fever, vomiting, diarrhea, chest pain, or SOB. Patient is AAOx3 on arrival, appears comfortable resting in stretcher. Time Seen by Provider: 09/25/18 16:10 Chief Complaint (Nursing): Flu-like Symptoms History Per: Patient History/Exam Limitations: no limitations Onset/Duration Of Symptoms: Days (x 1) Current Symptoms Are (Timing): Still Present Location Of Pain: Diffuse Myalgias Past Medical History Reviewed: Historical Data, Nursing Documentation, Vital Signs Vital Signs: Last Vital Signs Temp 98.4 F 09/25/18 16:28 Pulse 61 09/25/18 17:42 Resp 20 09/25/18 17:42 BP 150/126 H 09/25/18 17:42 Pulse Ox 96 09/25/18 17:42 - Medical History PMH: Arthritis, Bronchitis, COPD, CVA (Multiple; with residual right sided weakness), Depression, Diabetes, Gastritis, Hepatitis (C), HIV, HTN, Hypercholesterolemia, Hyperlipidemia, Osteoporosis, Rheumatoid Arthritis, Chronic Pain Denies: Chronic Kidney Disease Surgical History: Appendectomy, Cholecystectomy - [facility] Procedures INSERTION OF INFUSION DEV INTO SUP VENA CAVA, PERC APPROACH (05/08/18) OCCUPATIONAL THERAPY (11/01/13) PHYSICAL THERAPY NEC (11/01/13) RECREATIONAL THERAPY (11/01/13) Family History: States: Unknown Family Hx - Social History Hx Tobacco Use: No Hx Alcohol Use: No Hx Substance Use: No - Immunization History Hx Tetanus Toxoid Vaccination: No Hx Influenza Vaccination: Yes Hx Pneumococcal Vaccination: No Review Of Systems Except As Marked, All Systems Reviewed And Found Negative. Constitutional: Positive for: Other (Body aches). Negative for: Fever, Chills Cardiovascular: Negative for: Chest Pain Respiratory: Negative for: Cough, Shortness of Breath Gastrointestinal: Negative for: Vomiting, Diarrhea Physical Exam - Physical Exam Appears: Non-toxic, No Acute Distress Skin: Warm, Dry Head: Atraumatic, Normacephalic Eye(s): bilateral: Normal Inspection, PERRL, EOMI Oral Mucosa: Moist Neck: Normal ROM Chest: Symmetrical Cardiovascular: Rhythm Regular, No Murmur Respiratory: No Decreased Breath Sounds, No Accessory Muscle Use, Rhonchi (diffusely), No Wheezing Gastrointestinal/Abdominal: Soft, No Tenderness, No Distention Extremity: Right: Other (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 stroke), Bilateral: No Pedal Edema, Normal Color And Temperature Pulses: Left Dorsalis Pedis: Normal, Right Dorsalis Pedis: Normal Neurological/Psych: Oriented x3, Normal Speech, Normal Cranial Nerves ED Course And Treatment - Laboratory Results Result Diagrams: 09/25/18 18:03 09/25/18 18:03 ECG: Interpreted By Me ECG Rhythm: Sinus Bradycardia, 1st Degree HB ECG Interpretation: Normal Rate From EC O2 Sat by Pulse Oximetry: 96 (RA) Pulse Ox Interpretation: Normal Medical Decision Making Medical Decision Making: Impression: Body aches Plan: --CMP, CBC --Blood culture --Flu swab --EKG --Chest x-ray --IV fluids --Started 2L O2 via NC 18:40 W/u negative, d/w pt. 18:55 Case d/w Dr. Jaswinder Larose, agrees POC to d/c back to [place], he will f/u w/pt there. Disposition Counseled Patient/Family Regarding: Studies Performed, Diagnosis, Need For Followup - Disposition Referrals: Jessica Larose MD [Staff Provider] - Disposition: HOME/ ROUTINE Disposition Time: 18:55 Condition: STABLE Instructions: Viral Syndrome (DC) Forms: [facility] (Sinhala), General Discharge Instructions - Clinical Impression Clinical Impression: Viral syndrome - Scribe Statement The provider has reviewed the documentation as recorded by the Annalee Gillis Provider Attestation: All medical record entries made by the Sharondaibe were at my direction and personally dictated by me. I have reviewed the chart and agree that the record accurately reflects my personal performance of the history, physical exam, medical decision making, and the department course for this patient. I have also personally directed, reviewed, and agree with the discharge instructions and disposition.
--- NOTE | 2018-09-25 18:41 | RAD ---
HISTORY: Pneumonia COMPARISON: Chest x-ray performed 05/10/18 TECHNIQUE: Chest, one view. FINDINGS: LUNGS: No focal consolidation. Please note that chest x-ray has limited sensitivity for the detection of pulmonary masses. PLEURA: No significant pleural effusion identified. No definite pneumothorax . CARDIOVASCULAR: Heart size appears within normal limits. Ectatic aorta. Atherosclerotic calcifications. OSSEOUS STRUCTURES: Osseous demineralization. Degenerative changes. VISUALIZED UPPER ABDOMEN: Unremarkable. OTHER FINDINGS: None. IMPRESSION: No focal consolidation.
[2018-09-25 20:59] VITALS: BP 127/76; PULSE 68; RESP 18; TEMP 98.2; O2SAT 100
--- NOTE | 2018-09-26 11:19 | CARD ---
APPROVED REPORT Date of service: 09/25/2018 EKG Measurement Heart [id number] <Conclusion> Sinus bradycardia with 1st degree AV block Otherwise normal ECG
== END 2018-09-25 21:00 | disposition home or self-care (01) ==
LOC: C.ER 15:56
DX: B34.9 Viral infection, unspecified (principal)
CPT/HCPCS: 36415; 71045; 80053; 85025; 87040; 87804; 93005; 99284; J7030